=== PATIENT | female | born 1950 | race Caucasian/White ===

== ENCOUNTER → 2016-10-31 | Outpatient (CLI) | payer OTHER, MEDICAID | LOC: YCFC.O 08:10 | PROVIDERS: ATTEND Anesthesiology Pain Medicine | DX: Z79.891 Long term (current) use of opiate analgesic (principal) ==

== ENCOUNTER → 2017-03-07 | Outpatient (CLI) | payer OTHER, MEDICAID | END | disposition home or self-care (01) | LOC: YCFC.O 15:13 | PROVIDERS: ATTEND Anesthesiology Pain Medicine | DX: Z79.891 Long term (current) use of opiate analgesic (principal) ==

== ENCOUNTER → 2017-05-23 | Outpatient (CLI) | payer OTHER, MEDICAID | LOC: YCFC.O 15:47 | PROVIDERS: ATTEND Anesthesiology Pain Medicine | DX: Z79.891 Long term (current) use of opiate analgesic (principal) ==

== ENCOUNTER → 2017-09-12 | Outpatient (CLI) | payer OTHER, MEDICAID | END | disposition home or self-care (01) | LOC: YCFC.O 14:55 | PROVIDERS: ATTEND Anesthesiology Pain Medicine | DX: Z79.891 Long term (current) use of opiate analgesic (principal) ==

== ENCOUNTER → 2017-10-02 | Outpatient (CLI) | payer OTHER, MEDICAID | END | disposition home or self-care (01) | LOC: YCHH 10:27 | PROVIDERS: ATTEND Family Medicine | DX: E78.2 Mixed hyperlipidemia (principal); E11.9 Type 2 diabetes mellitus without complications; N18.9 Chronic kidney disease, unspecified; I25.10 Atherosclerotic heart disease of native coronary artery without angina pectoris; D63.1 Anemia in chronic kidney disease ==

== ENCOUNTER → 2017-11-23 | Outpatient (CLI) | payer MEDICAID, OTHER ==
--- NOTE | 2017-11-24 10:10 | NM ---
EXAM DESCRIPTION: Bone Scan, 3Phase CLINICAL HISTORY: M86.07. Right great toe amputated July 2017. Nonhealing. No redness or swelling. Insulin-dependent diabetes mellitus. Multiple other toe amputations. COMPARISON: No recent plain films available. TECHNIQUE: Patient injected with 26 mCi of technetium 99M MDP IV. Immediate flow gamma camera images were obtained of the bilateral feet from various planes. "Blood pool" images were then obtained of the bilateral feet from various planes. Delayed gamma camera images bilateral forefeet, from various planes were obtained 3.5 hours after injection. FINDINGS: Blood flow dynamic images in the first phase show increased activity in the right great toe. Technically difficult images to visualize. On the "blood pool" second phase, increased activity in the right great toe relative to the surrounding soft tissues. Minimal activity in the left ankle. On the 3.5 hour static final phase images, increased activity in the right great toe metatarsal phalangeal joint and possibly proximal phalanx. No recent plain films available for comparison. Also increased activity in the left ankle and mid tarsal bones. IMPRESSION: 1. Abnormal activity in the region of the right great toe on all 3 phases of dynamic radionuclide bone scan consistent with osteomyelitis. 2. Activity in the left ankle on mid phase and final phase could be indicative of osteoarthritis or trauma. Electronically signed by: Rainer Dodd MD 11/24/2017 10:09 AM [facility]
== END ==
LOC: NM 09:03
DX: M86.071 Acute hematogenous osteomyelitis, right ankle and foot (principal)
CPT/HCPCS: 78315; A9503

== ENCOUNTER → 2018-01-27 | Outpatient (CLI) | payer OTHER | END | disposition home or self-care (01) | LOC: GOCC 18:09 | PROVIDERS: ATTEND Internal Medicine Infectious Disease | DX: Z48.89 Encounter for other specified surgical aftercare (principal); A49.02 Methicillin resistant Staphylococcus aureus infection, unspecified site ==

== ENCOUNTER → 2018-01-30 | Outpatient (CLI) | payer OTHER | END | disposition home or self-care (01) | LOC: GOCC 18:09 | PROVIDERS: ATTEND Internal Medicine Infectious Disease | DX: Z51.81 Encounter for therapeutic drug level monitoring (principal) ==

== ENCOUNTER → 2018-02-02 | Outpatient (CLI) | payer OTHER | LOC: GOCC 18:12 | PROVIDERS: ATTEND Internal Medicine Infectious Disease | DX: A49.02 Methicillin resistant Staphylococcus aureus infection, unspecified site (principal); M20.60 Acquired deformities of toe(s), unspecified, unspecified foot ==

== ENCOUNTER → 2018-02-04 | Outpatient (CLI) | payer OTHER | LOC: GOCC 18:32 | PROVIDERS: ATTEND Internal Medicine Infectious Disease | DX: A49.02 Methicillin resistant Staphylococcus aureus infection, unspecified site (principal); M20.60 Acquired deformities of toe(s), unspecified, unspecified foot ==

== ENCOUNTER → 2018-02-12 | Outpatient (CLI) | payer OTHER | LOC: YCHH 14:41 | PROVIDERS: ATTEND Family Medicine | DX: B95.62 Methicillin resistant Staphylococcus aureus infection as the cause of diseases classified elsewhere (principal); E11.9 Type 2 diabetes mellitus without complications; L03.116 Cellulitis of left lower limb; N18.9 Chronic kidney disease, unspecified; D64.9 Anemia, unspecified ==

== ENCOUNTER → 2018-02-19 | Outpatient (CLI) | payer OTHER | LOC: YCHH 11:15 | PROVIDERS: ATTEND Family Medicine | DX: E11.9 Type 2 diabetes mellitus without complications (principal); D64.9 Anemia, unspecified; L03.116 Cellulitis of left lower limb; B95.62 Methicillin resistant Staphylococcus aureus infection as the cause of diseases classified elsewhere; E03.9 Hypothyroidism, unspecified; E78.5 Hyperlipidemia, unspecified; N18.9 Chronic kidney disease, unspecified ==

== ENCOUNTER → 2018-02-26 | Outpatient (CLI) | payer OTHER | LOC: YCHH 09:50 | PROVIDERS: ATTEND Family Medicine | DX: B95.62 Methicillin resistant Staphylococcus aureus infection as the cause of diseases classified elsewhere (principal); E11.9 Type 2 diabetes mellitus without complications; L03.116 Cellulitis of left lower limb; N18.9 Chronic kidney disease, unspecified; D64.9 Anemia, unspecified ==

== ENCOUNTER → 2018-03-05 | Outpatient (CLI) | payer OTHER | LOC: YCHH 09:22 | PROVIDERS: ATTEND Family Medicine | DX: E11.9 Type 2 diabetes mellitus without complications (principal); D64.9 Anemia, unspecified; E03.9 Hypothyroidism, unspecified; E78.5 Hyperlipidemia, unspecified; L03.116 Cellulitis of left lower limb; B95.62 Methicillin resistant Staphylococcus aureus infection as the cause of diseases classified elsewhere; N18.9 Chronic kidney disease, unspecified ==

== ENCOUNTER → 2018-10-01 | Outpatient (CLI) | payer OTHER | LOC: YCHH 09:09 | PROVIDERS: ATTEND Family Medicine | DX: D64.9 Anemia, unspecified (principal); E11.9 Type 2 diabetes mellitus without complications; E78.5 Hyperlipidemia, unspecified; E03.9 Hypothyroidism, unspecified; N18.9 Chronic kidney disease, unspecified ==

== ENCOUNTER → 2019-01-21 | Outpatient (CLI) | payer OTHER | LOC: YCHH 09:58 | PROVIDERS: ATTEND Family Medicine | DX: N18.9 Chronic kidney disease, unspecified (principal); E11.9 Type 2 diabetes mellitus without complications; E78.5 Hyperlipidemia, unspecified; E03.9 Hypothyroidism, unspecified; D64.9 Anemia, unspecified; N39.0 Urinary tract infection, site not specified ==

== ENCOUNTER → 2019-01-22 | Outpatient (CLI) | payer OTHER | LOC: YCHH 10:44 | PROVIDERS: ATTEND Family Medicine | DX: E11.9 Type 2 diabetes mellitus without complications (principal) ==

== ENCOUNTER → 2019-05-27 | Outpatient (CLI) | payer OTHER | LOC: YCHH 09:03 | PROVIDERS: ATTEND Family Medicine | DX: D64.9 Anemia, unspecified (principal); E11.9 Type 2 diabetes mellitus without complications; N18.9 Chronic kidney disease, unspecified; E78.5 Hyperlipidemia, unspecified; N39.0 Urinary tract infection, site not specified ==

== ENCOUNTER → 2019-06-12 | Outpatient (CLI) | payer OTHER | LOC: LAB.O 11:04 | PROVIDERS: ATTEND Internal Medicine | DX: E11.8 Type 2 diabetes mellitus with unspecified complications (principal); N49.3 Fournier gangrene; Z79.01 Long term (current) use of anticoagulants; I10 Essential (primary) hypertension ==

== ENCOUNTER → 2019-06-18 | Outpatient (CLI) | payer OTHER | LOC: LAB.O 10:48 | PROVIDERS: ATTEND Internal Medicine | DX: E11.8 Type 2 diabetes mellitus with unspecified complications (principal); I73.9 Peripheral vascular disease, unspecified; I10 Essential (primary) hypertension ==

== ENCOUNTER → 2019-06-23 | Outpatient (CLI) | payer OTHER | LOC: GOCC 08:31 | PROVIDERS: ATTEND Internal Medicine Gastroenterology | DX: A04.72 Enterocolitis due to Clostridium difficile, not specified as recurrent (principal) ==

== ENCOUNTER 2019-08-27 09:51 | Inpatient (IN) | payer MEDICARE, OTHER ==
[2019-08-27] MEDS ORDERED: ONDANSETRON INJ 4 MG/2 ML VIAL ONE (09:56)
[2019-08-27] MEDS ORDERED: SODIUM CHLORIDE 0.9% (FLUSH) 10 ML SYG IV PRN ×2 (10:02→13:39)
--- NOTE | 2019-08-27 10:27 | ED.PDOC ---
History of Present Illness - General Chief Complaint: Respiratory Problem Stated Complaint: shortness of breath Time Seen by Provider: 08/27/19 10:02 Source: patient, RN notes reviewed, Vital Signs reviewed, EMS notes reviewed, family Exam Limitations: no limitations - History of Present Illness Initial Comments: patient is a 69-year-old white female who presents with complaints of shortness of breath and mild confusion. Patient has a history of diabetes mellitus, coronary artery disease and peripheral neuropathy. Patient is status post amputation of the toes her right foot approximately 1 month ago. On arrival here patient's oxygen saturation was 86% on room air. Patient denies any fever. On arrival here she was afebrile but quickly spiked a fever to 101.2. Patient denies any cough. He denies any headache, nausea, vomiting, chest pain, diarrhea nothing seems to make the shortness of breath worse. On 1 L of oxygen via nasal cannula. Timing/Duration: 1 hour Severity: mild Activities at Onset: none Possible Cause: no prior episodes Improving Factors: other - oxygen therapy Worsening Factors: nothing Associated Symptoms: weakness Respiratory Risk Factors: no cause identified Allergies/Adverse Reactions: Allergies CI Pigment Blue 63 [From Cymbalta] Allergy (Mild, Verified 07/31/16 09:17) Rash Ciprofloxacin [From Cipro] Allergy (Mild, Verified 07/31/16 09:17) Rash Duloxetine [From Cymbalta] Allergy (Mild, Verified 07/31/16 09:18) Rash Latex Allergy (Mild, Verified 07/31/16 09:19) Rash states does not know if it is the powder or gloves itself that causes the rash Venlafaxine [From Effexor] Allergy (Mild, Verified 07/31/16 09:20) Rash Home Medications: Ambulatory Orders Bupropion HCl [Wellbutrin Sr] 150 mg PO BID #0 03/29/13 Captopril 12.5 mg PO BID #0 03/29/13 Clonazepam 0.5 mg PO TID #0 03/29/13 Clopidogrel Bisulfate [Plavix] 75 mg PO DAILY #0 03/29/13 Furosemide 40 mg PO DAILY #0 03/29/13 Metformin HCl 1,000 mg PO BID #0 03/29/13 Pramipexole Dihydrochloride [Mirapex] 0.25 mg PO DAILY #0 06/07/13 Simvastatin 80 mg PO DAILY #0 03/29/13 Spironolactone 25 mg PO DAILY #0 03/29/13 Tramadol HCl 50 mg PO TID PRN #0 03/29/13 Carvedilol [Coreg] 12.5 mg PO DAILY 07/28/16 Insulin Glargine [Lantus Solostar] 26 unit SC BEDTIME 07/28/16 Insulin Lispro [Humalog] 0 unit SC .SLIDING SCALE PRN 07/28/16 Meloxicam [Mobic] 7.5 mg PO DAILY #15 tab 07/28/16 Pregabalin [Lyrica] 75 mg PO BEDTIME 07/28/16 Trazodone HCl 50 mg PO BEDTIME 07/28/16 Bifidobacterium Infantis [Align] 4 mg PO BID #30 cap 08/02/16 HYDROcodone 7.5MG/APAP 325MG [[place] 7.5/325] 0.5 - 1 tab PO Q6H PRN #35 tab 08/02/16 Nitrofurantoin Monohydrate Mac [Macrobid] 100 mg PO BID #12 cap 08/02/16 Tizanidine HCl [Zanaflex] 2 mg PO Q8H PRN #30 cap 08/02/16 Review of Systems - Review of Systems Constitutional: States: no symptoms reported, malaise, weakness. Denies: chills EENTM: States: no symptoms reported Respiratory: States: see HPI, short of breath. Denies: cough Cardiology: States: see HPI. Denies: chest pain, palpitations, syncope Gastrointestinal/Abdominal: States: no symptoms reported, see HPI Genitourinary: States: no symptoms reported. Denies: dysuria, frequency Musculoskeletal: States: no symptoms reported. Denies: joint swelling, muscle pain, neck pain Skin: States: no symptoms reported. Denies: change in color, rash Neurological: States: weakness. Denies: headache, seizure Endocrine: States: no symptoms reported Hematologic/Lymphatic: States: no symptoms reported All other Systems: Reviewed and Negative Past Medical History (General) - Patient Medical History Hx Seizures: No Hx Stroke: No Hx Asthma: No Hx of COPD: No Hx Cardiac Disorders: Yes Hx Congestive Heart Failure: Yes Hx Pacemaker: No Hx Hypertension: Yes Hx Diabetes: Yes Hx MRSA: No - Vaccination History Hx Influenza Vaccination: Yes Hx Pneumococcal Vaccination: Yes - Social History Hx Tobacco Use: No Hx Chewing Tobacco Use: No Hx Alcohol Use: No Hx Substance Use: No Hx Substance Use Treatment: No Hx Depression: Yes Hx Physical Abuse: No Hx Emotional Abuse: No Hx Suspected Abuse: No Family Medical History - Family History Father Living Status: Hx Family Congestive Heart Failure: Yes - from heart problems Mother Family History: No Known Living Status: Hx Family;Other: cerosis of liver Physical Exam - Physical Exam General Appearance: Alert, Anxious, Obese, Well Developed, Well Groomed, Well Hydrated, Well Nourished Eyes, Ears, Nose, Throat Exam: PERRL/EOMI, normal ENT inspection, pharynx normal Neck: non-tender, full range of motion, supple, normal inspection Respiratory: chest non-tender, lungs clear, normal breath sounds, no respiratory distress, no accessory muscle use Cardiovascular/Chest: normal peripheral pulses, no edema, no gallop, no JVD, no murmur, tachycardia Peripheral Pulses: radial,right: 2+ Gastrointestinal/Abdominal: normal bowel sounds, non tender, soft, no organomegaly, no pulsatile mass Extremity: normal range of motion, non-tender, other - patient is status post bilateral toe amputations. Left leg is cool to touch. This is the likely used for harvesting the vein for her CABG. Her right lower extremity is red with tenderness to palpation and is warm to touch. 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 08/27/19 11:53 Patient presented with complaints of shortness of breath. Initially she did not have a fever but while here spiked a fever to 101.2. That has improved after by mouth Tylenol. Patient's noted to have an elevated white count at over 20,000 with a left shift consistent with infection. Additionally her BNP is elevated consistent with CHF exacerbation. Patient with the hospitalist service, Jones Hodge, and he plans on and agrees with plan for admission. I discussed the plan of care with the patient and her family and they voiced understanding and agreement with the plan of care. - Results/Orders Results/Orders: 08/27/19 10:02 Sodium Chloride 0.9% (Flush) [Saline Flush Syringe] 3 ml IV PRN PRN 08/27/19 10:03 IV Care:Saline Lock per Protoc QSHIFT Telemetry ONCE Oxygen Stat 08/27/19 10:15 EKG STAT 08/27/19 12:00 Vancomycin Per Pharmacy 1 ea INJ ONCE 08/28/19 09:00 Pulse Ox Daily Laboratory Results - last 24 hr 08/27/19 08/27/19 08/27/19 09:45 09:45 09:45 WBC 19.6 H RBC 4.68 Hgb 13.2 Hct 40.2 MCV 85.8 MCH 28.2 MCHC 32.9 L RDW 15.3 H Plt Count 225 MPV 9.4 Absolute Neuts (auto) 17.90 H Absolute Lymphs (auto) 1.00 Absolute Monos (auto) 0.60 Absolute Eos (auto) 0.00 Absolute Basos (auto) 0.10 Neutrophils % 91.2 H Lymphocytes % 5.1 L Monocytes % 3.1 Eosinophils % 0.2 L Basophils % 0.4 PT 9.5 INR 0.95 PTT (SP) 29.6 Sodium 136 Potassium 4.2 Chloride 99 L Carbon Dioxide 21 Anion Gap 20.2 H BUN 17 Creatinine 0.77 BUN/Creatinine Ratio 22.1 H Random Glucose 194 H Serum Osmolality 278.8 Calcium 9.4 Magnesium 1.8 1.8 Total Bilirubin 0.7 Direct Bilirubin 0.2 Indirect Bilirubin 0.5 AST 20 ALT 16 Alkaline Phosphatase 56 Creatine Kinase 52 CK-MB (CK-2) 1.4 CK-MB (CK-2) % Not Reportable Troponin I < 0.02 B-Natriuretic Peptide 467.0 H* Serum Total Protein 7.9 Albumin 4.1 EKG: Performed at 1111 hrs. on 27 August 2019: Sinus tachycardia at 116 bpm with left axis deviation. Inferior infarct age indeterminate, anterior lateral infarct age indeterminate, abnormal EKG. No EKG for comparison. Chest,1 View: CR/DR/XR. CLINICAL HISTORY: 69 years Female DYSPNEA COMPARISON: Chest CT scan 12 November 2014. TECHNIQUE: ONE VIEW PORTABLE. AP 1024 hours, upright position. FINDINGS: Mild cardiomegaly. Pulmonary vascularity increased. Prominent interstitial markings and thickening of the fissures bilaterally. Perihilar peribronchial wall cuffing. Bilateral lung volumes are decreased. Question of a small effusion on the left. None pneumothorax. Chronic elevation of the left hemidiaphragm. IMPRESSION: Findings consistent with CHF and pulmonary edema. Some pulmonary findings are chronic and stable since 2014. Possible small left pleural effusion. Recommend follow-up 2 view chest x-ray. Electronically signed by: Rainer Dodd MD 08/27/2019 10:49 AM Departure - Departure Clinical Impression: Cellulitis of leg without foot, right Congestive heart failure Qualifiers: Heart failure type: unspecified Heart failure chronicity: acute on chronic Qualified Code(s): I50.9 - Heart failure, unspecified Leukocytosis Qualifiers: Leukocytosis type: unspecified Qualified Code(s): D72.829 - Elevated white bl ood cell count, unspecified Fever Qualifiers: Fever type: due to other condition Qualified Code(s): R50.81 - Fever presenting with conditions classified elsewhere Time of Disposition: 12:00 - except in for admission by Jones Hodge Disposition: Admit Patient Condition: Fair Departure Forms: ED Discharge - Pt. Copy, Patient Portal Self Enrollment Referrals: Solitario Carrizales MD [Primary Care Provider] - 1-2 Weeks Home Medications: Ambulatory Orders Bupropion HCl [Wellbutrin Sr] 150 mg PO BID #0 03/29/13 Captopril 12.5 mg PO BID #0 03/29/13 Clonazepam 0.5 mg PO TID #0 03/29/13 Clopidogrel Bisulfate [Plavix] 75 mg PO DAILY #0 03/29/13 Furosemide 40 mg PO DAILY #0 03/29/13 Metformin HCl 1,000 mg PO BID #0 03/29/13 Pramipexole Dihydrochloride [Mirapex] 0.25 mg PO DAILY #0 03/29/13 Simvastatin 80 mg PO DAILY #0 03/29/13 Spironolactone 25 mg PO DAILY #0 03/29/13 Tramadol HCl 50 mg PO TID PRN #0 03/29/13 Carvedilol [Coreg] 12.5 mg PO DAILY 07/28/16 Insulin Glargine [Lantus Solostar] 26 unit SC BEDTIME 07/28/16 Insulin Lispro [Humalog] 0 unit SC .SLIDING SCALE PRN 07/28/16 Meloxicam [Mobic] 7.5 mg PO DAILY #15 tab 07/28/16 Pregabalin [Lyrica] 75 mg PO BEDTIME 07/28/16 Trazodone HCl 50 mg PO BEDTIME 07/28/16 Bifidobacterium Infantis [Align] 4 mg PO BID #30 cap 08/02/16 HYDROcodone 7.5MG/APAP 325MG [[place] 7.5/325] 0.5 - 1 tab PO Q6H PRN #35 tab 08/02/16 Nitrofurantoin Monohydrate Mac [Macrobid] 100 mg PO BID #12 cap 08/02/16 Tizanidine HCl [Zanaflex] 2 mg PO Q8H PRN #30 cap 08/02/16 Decision To Admit - Decistion To Admit Decision to Admit Date: 08/27/19 Decision to Admit Time: 11:38
[2019-08-27] MEDS ORDERED: ONDANSETRON INJ 4 MG/2 ML VIAL IV ONE (10:29)
[2019-08-27] MEDS ORDERED: ACETAMINOPHEN 500 MG TAB PO ONE (10:42)
--- NOTE | 2019-08-27 10:53 | RAD ---
EXAM DESCRIPTION: Chest,1 View: CR/DR/XR. CLINICAL HISTORY: 69 years Female DYSPNEA COMPARISON: Chest CT scan 12 November 2014. TECHNIQUE: ONE VIEW PORTABLE. AP 1024 hours, upright position. FINDINGS: Mild cardiomegaly. Pulmonary vascularity increased. Prominent interstitial markings and thickening of the fissures bilaterally. Perihilar peribronchial wall cuffing. Bilateral lung volumes are decreased. Question of a small effusion on the left. None pneumothorax. Chronic elevation of the left hemidiaphragm. IMPRESSION: Findings consistent with CHF and pulmonary edema. Some pulmonary findings are chronic and stable since 2015. Possible small left pleural effusion. Recommend follow-up 2 view chest x-ray. Electronically signed by: Rainer Dodd MD 08/27/2019 10:49 AM [facility]
[2019-08-27] MEDS ORDERED: VANCOMYCIN PER PHARMACY INJ SCH (12:00)
--- NOTE | 2019-08-27 12:54 | HP ---
SUPERVISING PHYSICIAN: Solitario Carrizales MD CHIEF COMPLAINT: Shortness of breath. HISTORY OF PRESENT ILLNESS: Ms. Murrieta is a 69-year-old female patient who presented to the Emergency Room today complaining of shortness of breath with mild confusion according to her family. She does have a significant medical history of diabetes mellitus, coronary artery disease and severe peripheral neuropathy. She is status post amputation of her toes on her right foot approximately a month ago due to gangrene and diabetic ulcer complication. Initially on admission to the Emergency Room, she was satting 86% on room air, but denied any fever. However, after admission, it was noted she did spike a fever up to 101.2. She denied any cough or headache. She noted she had a mildly sore throat and notes she does have shortness of breath although she feels like it is more when she holds her breath, it takes her a while to catch up. She had been recently on antibiotics with doxycycline and been under treatment by Dr. Proctor and Dr. Guzmán for wound management of the right foot and is under the care of home health. Her labs today showed she had a significant leukocytosis of 19,600 with a left shift. Her chemistries were fairly unremarkable, but she did have anion gap that was slightly elevated at 20. Blood sugar 194. Liver functions were within normal limits. BNP was elevated at 467. She does not have a listed medical history of congestive heart failure. Review of her records showed her last echocardiogram was in 2013. I do not have those results. Given her fever and white count, chest x-ray was completed and per radiologic interpretation of single view chest, findings were consistent with congestive heart failure and pulmonary edema with some pulmonary findings chronic, but stable since 2014. There was note of a small left pleural effusion. Given her symptomatology, fever and white count, there was concern that possibly the foot which is a little red was possibly showing early signs of cellulitis. We cannot completely rule out early community acquired pneumonia with some underlying congestive heart failure exacerbation. The patient is going to be admitted for further evaluation and treatment. She was admitted in stable condition. PAST MEDICAL HISTORY: 1. Diabetes mellitus on insulin therapy. 2. Chronic obstructive pulmonary disease. 3. Hypertension. 4. Peripheral vascular disease. 5. Recent treatment of gangrene osteomyelitis of the right foot due to diabetic ulcer, requiring amputation of the toes having recently been treated with antibiotic with vancomycin for 6 weeks. PAST SURGICAL HISTORY: 1. Coronary artery bypass graft times 4 in 2007. 2. section times 2. 3. Resection of left upper lobe due to necrotizing pneumonia. 4. Left carotid endarterectomy in 2015. 5. Complete amputation of all toes on the right foot due to diabetic complications. CURRENT MEDICATIONS: Awaiting updated verified list of home medications. Please see that list once updated. ALLERGIES: CI PIGMENT BLUE 63, CIPROFLOXACIN, DULOXETINE, LATEX, VENLAFAXINE. FAMILY HISTORY: Noncontributory. SOCIAL HISTORY: The patient is and lives in [place]. She has one son. She has never smoked and has never drank alcohol. REVIEW OF SYSTEMS: CONSTITUTIONAL: Positive for fevers and chills with a fever in the Emergency Room and some mild confusion. HEENT: Negative for earaches, headaches, vision changes. She does note she has a sore throat. RESPIRATORY: Negative for any significant coughing, but does have some shortness of breath. CARDIOVASCULAR: Negative for chest pain, palpitations or syncopal episodes. GASTROINTESTINAL: Negative for nausea, vomiting, diarrhea, constipation. GENITOURINARY: Negative for dysuria, hematuria, polyuria. MUSCULOSKELETAL: As noted in history of present illness. Recent amputation of all toes on the right foot, currently followed by wound management and Dr. Guzmán. NEUROLOGIC: Negative for headaches, numbness, paresthesias. PHYSICAL EXAMINATION: VITAL SIGNS: Temperature in the Emergency Room was 101.7 with pulse 74, blood pressure 138/75, respirations 20, saturation 90% on room air and 93% on nasal cannula at 1 liter. GENERAL: The patient appears to be in no acute distress. She is alert. She does not appear to be confused. HEENT: Tympanic membranes clear bilaterally. Oropharynx is pink. Posterior pharynx mildly erythematous. Tonsils without any notable swelling or exudate. NECK: Supple, nontender with full range of motion. No jugular venous distention noted. RESPIRATORY: Lung sounds diminished towards the bases, but no obvious rhonchi, wheezes or rales. CARDIOVASCULAR: Regular rate and rhythm without any appreciable murmurs, gallops, or rubs. ABDOMEN: Soft, nontender. Positive bowel sounds. EXTREMITIES: Status post bilateral toe amputations. Right lower extremity with some redness and tenderness to palpation over the distal aspect of the foot with an area of healing with eschar on the distal lateral aspect, but no drainage, no obvious consolidations. NEUROLOGIC: The patient is alert and oriented times three. Cranial nerves II- XII are grossly intact. Facial features are symmetrical. Extraocular movements are within normal limits. There is no nystagmus noted. SKIN: Warm, pink and dry. LABORATORY: CBC showed leukocytosis of 19,600 with a left shift. Coagulation studies within normal limits. Chemistries showed normal electrolytes, but she did have an anion gap elevated at 20. BUN 17, creatinine 0.7. Liver functions all within normal limits. Troponin less than 0.02. BNP was elevated at 467. Urinalysis pending. Group A Strep screen positive. Influenza by PCR was negative. RADIOLOGY: Chest x-ray in the Emergency Room per radiologic interpretation of single view chest showed findings consistent with congestive heart failure and pulmonary edema, some pulmonary findings are chronic and stable since 2015. This was followed up with a two view chest and per radiologic interpretation again showed cardiomegaly with prominent pulmonary vasculature with small left pleural effusion, might represent pulmonary edema secondary to underlying heart failure with linear areas of airspace opacification in the right middle lobe, likely representing chronic atelectasis or scarring. X-ray of the right foot showed postsurgical changes consistent with amputation of the entire forefoot up to the metatarsophalangeal joint with some moderate soft tissue swelling of the stump with questionable subcutaneous air concerning for cellulitis, however, underlying osteotome was not completely excluded. No gross cortical irregularity or bony erosions were noted. Echocardiogram was also completed on admission and was read by Dr. Marion, but was technically limited secondary to poor acoustic windows, but it was noted that probable ejection fraction was 30%. ASSESSMENT: 1. Leukocytosis with probable developing right sided community acquired pneumonia with acute exacerbation of chronic obstructive pulmonary disease. 2. Acute pharyngitis secondary to Group A Strep, possibly complicating #1. 3. Chronic wound of the right lower extremity with recent amputation within the last 30 days having been on long-term antibiotic therapy with vancomycin with concerns for developing cellulitis versus complications to include osteomyelitis. 4. Acute on chronic congestive heart failure exacerbation with a reduced ejection fraction per recent echocardiogram showing ejection fraction of 30%. 5. Diabetes mellitus, type 2, on oral and insulin therapy. 6. Severe peripheral vascular disease. 7. Chronic obstructive pulmonary disease with exacerbation as noted in #1. 8. Hypertension. PLAN: Ms. Murrieta is going to be admitted for initiation of antibiotic therapy for treatment of both questionable underlying cellulitis of the right lower extremity again with concerns for osteomyelitis from chronic wound. She is also going to be started on cefepime and azithromycin for treatment of underlying developing pneumonia with exacerbation of her chronic obstructive pulmonary disease. I am not too convinced that she is having a severe exacerbation of her congestive heart failure, but she did have elevated BNP on admission, but we will continue with her normal Lasix at this point and reassess in the morning. She did have a positive strep screen which could be complicating her picture with the fever and concern for developing pneumonia that will be covered with azithromycin and cefepime. The reason I am utilizing cefepime is the fact that she has been in a long-term care facility within the last several months and has been on long-term antibiotic therapy to cover for possible Pseudomonas and she is allergic to fluoroquinolones. I believe she is being followed by Dr. Guzmán or Dr. Livingston, but I am not sure if Dr. [place]. We will need to see if we can talk to Dr. Guzmán and discuss the findings on the foot. She may need MRI of the foot to further rule out osteomyelitis, but the foot honestly does not look that bad at this point, but I have not followed it. Dr. Carrizales is going to see the patient in the morning and review plan of care and we will repeat labs in the morning as well. Her echocardiogram was done, but according to Dr. Marion was very difficult to read, but review of old records looks like she did have an ejection fraction at some point of 40%. We will put her on DVT prophylaxis per protocol. She is not having any significant amount of shortness of breath or wheezing. Therefore, we will hold off on any steroids. At this point, given the significant amount of breathing treatments, we will go ahead and continue with aggressive bronchial hygiene. Again, it is a little difficult on the x-rays to fully rule out underlying pneumonia versus possible pulmonary edema, but again clinically she is not presenting as fluid overload and it may just be that the acute pharyngitis is resulting in her elevated white count and fever. Given her underlying comorbidities, we will cover accordingly with antibiotics. Again, we will continue with medications for her congestive heart failure including her Lasix and Spironolactone and reassess in the morning. She is also already on a beta sharon. Until the patient can transition to outpatient management, we will continue to monitor and treat as needed. #[id number] [facility]
[2019-08-27] MEDS ORDERED: VANCOMYCIN HCL INJ 1,000 MG VIAL IVPB ONE (13:18)
[2019-08-27] MEDS ORDERED: VANCOMYCIN HCL INJ 500 MG VIAL ONE (13:18)
[2019-08-27] MEDS ORDERED: SODIUM CHLORIDE 0.9% 250ML 250 ML ONE ×2 (13:18→15:10)
[2019-08-27] MEDS: VANCOMYCIN HCL INJ 1,000 MG, VANCOMYCIN HCL INJ 500 MG in SODIUM CHLORIDE 0.9% 250ML 25... IVPB SCH (13:24)
[2019-08-27] MEDS ORDERED: DEXTROSE 50% 25 GM/50 ML SYG IV PRN (13:39)
[2019-08-27] MEDS ORDERED: NITROGLYCERIN 0.4 MG 25 EA TAB SL PRN (13:39)
[2019-08-27] MEDS ORDERED: ONDANSETRON INJ 4 MG/2 ML VIAL IV PRN (13:39)
[2019-08-27] MEDS ORDERED: GLUCAGON INJ 1 MG VIAL SUBCU PRN (13:39)
[2019-08-27] MEDS ORDERED: ACETAMINOPHEN 325 MG TAB PO PRN (13:39)
[2019-08-27] MEDS ORDERED: IV SET AND CAP CHANGE INJ INJ SCH (14:00)
[2019-08-27] MEDS ORDERED: ACETAMINOPHEN W/ COD #4 TAB 1EA TAB PO PRN ×2 (14:11→20:46)
[2019-08-27] MEDS ORDERED: CYANOCOBALAMIN INJ 1,000 MCG/ML INJ IM SCH (14:30)
[2019-08-27] MEDS ORDERED: CEFEPIME 2 GM in SODIUM CHL 0.9% 50ML MIN-BAG+ 50 ML IVPB SCH (15:00)
[2019-08-27] MEDS ORDERED: SODIUM CHL 0.9% 50ML MIN-BAG+ 50 ML IVPB ONE (15:10)
--- NOTE | 2019-08-27 15:10 | RAD ---
EXAM DESCRIPTION: Foot,Left 2 Views CLINICAL HISTORY: possible cellulitis COMPARISON: None Available. TECHNIQUE: AP and lateral radiograph of the right foot. FINDINGS: Diffuse osteopenia of the visualized bones noted. Post surgical changes consistent with amputation of the entire forefoot up to the metatarsophalangeal joint noted. No acute fracture. Mild soft tissue swelling of the stump with questionable subcutaneous air is concerning for cellulitis. No definite cortical irregularity or bony erosion of the metatarsal heads noted, however acute osteomyelitis cannot be completely excluded. A large calcaneal spur is noted at the insertion of plantaris IMPRESSION: 1. Postsurgical changes consistent with amputation of entire forefoot up to the metatarsophalangeal joint. 2. Mild soft tissue swelling of the stump with questionable subcutaneous air is concerning for cellulitis, however underlying acute osteomyelitis cannot be completely excluded. No gross cortical irregularity or bony erosions identified. Electronically signed by: Wilber Leung MD 08/27/2019 3:08 PM [facility]
[2019-08-27] MEDS ORDERED: CEFEPIME 2 GM VIAL ONE (15:11)
[2019-08-27] MEDS ORDERED: AZITHROMYCIN IV 500 MG VIAL IVPB ONE (15:12)
--- NOTE | 2019-08-27 15:14 | RAD ---
EXAM DESCRIPTION: Chest,2 Views CLINICAL HISTORY: 69 years Female, CHF vs PNA COMPARISON: CT chest dated July 29, 2016. TECHNIQUE: PA and lateral radiographs of the chest were obtained. FINDINGS: The trachea is slightly deviated to the right. The cardiomediastinal silhouette is enlarged. Prominence of the pulmonary vasculature with cephalization likely represent underlying pulmonary edema. Again noted are linear areas of airspace opacification in the right middle lobe likely represents chronic atelectasis/scarring. The pulmonary arteries appears mildly prominent likely represents sequela of pulmonary hypertension. No acute consolidation. Small left pleural effusion. IMPRESSION: 1. Cardiomegaly with prominent pulmonary vasculature and small left pleural effusion likely represents pulmonary edema secondary to underlying heart failure. 2. Linear areas of airspace opacification in the right middle lobe likely represents chronic atelectasis/scarring. Electronically signed by: Wilber Leung MD 08/27/2019 3:12 PM [employer] OF WORKS
[2019-08-27] MEDS ORDERED: AZITHROMYCIN IV 500 MG in SODIUM CHLORIDE 0.9% 250ML 250 ML IVPB SCH (16:00)
[2019-08-27] MEDS ORDERED: metFORMIN HCL 500 MG TAB PO SCH (17:00)
[2019-08-27] MEDS: INSULIN LISPRO 100 UNITS/ML PEN SUBCU SCH ×2 (17:06→20:53)
[2019-08-27] MEDS ORDERED: DOCUSATE SODIUM 100 MG CAP PO PRN (20:46)
[2019-08-27] MEDS: CARVEDILOL 12.5 MG TAB PO SCH ×2 (20:55→21:06)
[2019-08-27] MEDS ORDERED: [UNRECOGNIZED DRUG - OTHER] PO SCH (21:00)
[2019-08-27] MEDS ORDERED: traZODone HCL 50 MG TAB PO SCH (21:00)
[2019-08-27] MEDS ORDERED: INSULIN DETEMIR 100 UNITS/ML PEN SUBCU SCH (21:00)
[2019-08-27] MEDS ORDERED: CAPTOPRIL 12.5 MG PO SCH (21:00)
[2019-08-27] MEDS ORDERED: PRAMIPEXOLE 0.25 MG TAB PO SCH (21:00)
[2019-08-27] MEDS ORDERED: SIMVASTATIN 20 MG TAB PO SCH (21:00)
[2019-08-27] MEDS ORDERED: BIFIDOBACTERIUM INFANTIS 4 MG CAP PO SCH (21:00)
[2019-08-27] MEDS ORDERED: SOD PO SCH (21:00)
[2019-08-27] MEDS ORDERED: DOCUSATE SODIUM 100 MG CAP PO SCH (21:00)
[2019-08-28] MEDS ORDERED: VANCOMYCIN HCL INJ 500 MG VIAL ONE (06:20)
[2019-08-28] MEDS ORDERED: VANCOMYCIN HCL INJ 1,000 MG VIAL IVPB ONE (06:20)
[2019-08-28] MEDS ORDERED: SODIUM CHLORIDE 0.9% 250ML 250 ML ONE ×2 (06:20→07:27)
[2019-08-28] MEDS: VANCOMYCIN HCL INJ 1,000 MG, VANCOMYCIN HCL INJ 500 MG in SODIUM CHLORIDE 0.9% 250ML 25... IVPB SCH (06:43)
[2019-08-28 06:56] VITALS: BP 116/66; TEMP 97.1
[2019-08-28] MEDS ORDERED: SODIUM CHL 0.9% 50ML MIN-BAG+ 50 ML IVPB ONE (07:27)
[2019-08-28] MEDS ORDERED: CEFEPIME 2 GM VIAL ONE (07:28)
[2019-08-28] MEDS ORDERED: AZITHROMYCIN IV 500 MG VIAL IVPB ONE (07:30)
[2019-08-28] MEDS ORDERED: ENOXAPARIN SODIUM 40 MG/0.4 ML SYG SUBCU SCH (09:00)
[2019-08-28] MEDS ORDERED: PRAMIPEXOLE 0.25 MG TAB PO SCH (09:00)
[2019-08-28] MEDS ORDERED: SPIRONOLACTONE 25 MG TAB PO SCH (09:00)
[2019-08-28] MEDS ORDERED: FUROSEMIDE 40 MG TAB PO SCH (09:00)
[2019-08-28] MEDS ORDERED: PREGABALIN 75 MG CAP PO SCH (09:00)
[2019-08-28] MEDS ORDERED: ESCITALOPRAM 10 MG TAB PO SCH (09:00)
[2019-08-28] MEDS ORDERED: CLOPIDOGREL 75 MG TAB PO SCH (09:00)
[2019-08-28] MEDS ORDERED: ASPIRIN (CHEWABLE) 81 MG TAB PO SCH (09:00)
[2019-08-28 15:20] VITALS: O2SAT 94
--- NOTE | 2019-08-28 17:25 | DS ---
SUPERVISING PHYSICIAN: Solitario Carrizales M.D. ADMISSION DIAGNOSIS: 1. Leukocytosis with possible right sided community acquired pneumonia. 2. Acute exacerbation of chronic obstructive pulmonary disease. 3. Group A Strep pharyngitis. 4. Chronic wound in the right lower extremity with recent amputation in the last 30 days on chronic vancomycin therapy with concern for cellulitis versus complications to include osteomyelitis. 5. Acute on chronic congestive heart failure with an ejection fraction of 30%. 6. Diabetes mellitus type 2. 7. Peripheral vascular disease. 8. Chronic obstructive pulmonary disease. 9. Hypertension. DISCHARGE DIAGNOSIS: 1. Leukocytosis with possible right sided community acquired pneumonia. 2. Acute exacerbation of chronic obstructive pulmonary disease. 3. Group A Strep pharyngitis. 4. Chronic wound in the right lower extremity with recent amputation in the last 30 days on chronic vancomycin therapy with concern for cellulitis versus complications to include osteomyelitis. 5. Acute on chronic congestive heart failure with an ejection fraction of 30%. 6. Diabetes mellitus type 2. 7. Peripheral vascular disease. 8. Chronic obstructive pulmonary disease. 9. Hypertension. HOSPITAL COURSE: This is a 69 year-old female who went to the Emergency Room with shortness of breath and mild confusion. She has a history of pretty significant peripheral vascular disease and recently had amputation of some toes on her right foot about a month ago due to gangrene and diabetic foot ulcers. In the Emergency Room, she was noted to have O2 saturations of 86% but denied fever, however was noted to have a fever in the Emergency Room of 101.2. She also had complaints of sore throat and therefore a swab was done which showed Strep pharyngitis. She has been on outpatient antibiotics with Doxycycline under the treatment of Dr. Joel and Dr. Guzmán. Chest x-rays were done which showed some pulmonary vascular congestion. Due to her leukocytosis and multiple potential infection sources, she was admitted to the hospital. She was placed on Cefepime and azithromycin. A foot x-ray was done as well due to concerns for osteomyelitis and it did show some mild soft tissue swelling but could not completely rule out osteomyelitis. However, she did not have a significant cellulitis. Throughout her time on the unit her vital signs were acceptable. Her temperature went down. This morning she feels really good and actually wants to go home. She was evaluated by Dr. Carrizales and he agrees that she can probably go home with outpatient antibiotics for her Strep pharyngitis as well as any upper respiratory issues/bronchitis. I do not hear any wheezing or adventitious lung sounds at this time. She is not short of breath either. So will discharge her home in stable condition with Omnicef to be given twice a day for 7 days. She will followup on September [address] Carrizales at 2:45 in the afternoon. All other home medications have been resumed. #[id number] [facility]
[2019-09-02] MEDS ORDERED: NON-FORMULARY MEDICATION 1 EA MIS (Semaglutide [Ozempic] 2 MG) SC SCH (14:11)
== END 2019-08-28 10:50 | disposition home or self-care (01) | DRG 190 ==
LOC: ER 09:51 → OBSVTOIN 12:53 → MS 12:53
PROVIDERS: ADMIT Nurse Practitioner Family; ATTEND Nurse Practitioner
DX: J44.1 Chronic obstructive pulmonary disease with (acute) exacerbation (principal); I50.43 Acute on chronic combined systolic (congestive) and diastolic (congestive) heart failure; L03.115 Cellulitis of right lower limb; I11.0 Hypertensive heart disease with heart failure; J02.0 Streptococcal pharyngitis; D72.829 Elevated white blood cell count, unspecified; E11.51 Type 2 diabetes mellitus with diabetic peripheral angiopathy without gangrene; R50.81 Fever presenting with conditions classified elsewhere; I25.10 Atherosclerotic heart disease of native coronary artery without angina pectoris; E11.42 Type 2 diabetes mellitus with diabetic polyneuropathy; M77.31 Calcaneal spur, right foot; M85.871 Other specified disorders of bone density and structure, right ankle and foot; Z79.4 Long term (current) use of insulin; Z79.02 Long term (current) use of antithrombotics/antiplatelets; Z79.1 Long term (current) use of non-steroidal anti-inflammatories (NSAID); Z79.899 Other long term (current) drug therapy; Z89.411 Acquired absence of right great toe; Z89.421 Acquired absence of other right toe(s); Z98.890 Other specified postprocedural states; Z95.1 Presence of aortocoronary bypass graft; Z91.040 Latex allergy status; Z88.1 Allergy status to other antibiotic agents; Z88.8 Allergy status to other drugs, medicaments and biological substances

== ENCOUNTER → 2019-09-04 | Outpatient (CLI) | payer MEDICARE | LOC: YCHH 09:59 | PROVIDERS: ATTEND Family Medicine | DX: N39.0 Urinary tract infection, site not specified (principal) ==

== ENCOUNTER → 2019-10-07 | Outpatient (CLI) | payer MEDICARE | LOC: YCHH 09:52 | PROVIDERS: ATTEND Family Medicine | DX: E11.42 Type 2 diabetes mellitus with diabetic polyneuropathy (principal); T87.43 Infection of amputation stump, right lower extremity; N18.9 Chronic kidney disease, unspecified; D64.9 Anemia, unspecified; E03.9 Hypothyroidism, unspecified; M86.9 Osteomyelitis, unspecified ==

== ENCOUNTER → 2019-11-15 | Outpatient (CLI) | payer MEDICARE | LOC: YCHH 10:45 | PROVIDERS: ATTEND Family Medicine | DX: E03.9 Hypothyroidism, unspecified (principal) ==

== ENCOUNTER → 2020-01-15 | Outpatient (CLI) | payer MEDICARE | LOC: YCHH 10:42 | PROVIDERS: ATTEND Family Medicine | DX: M25.50 Pain in unspecified joint (principal) ==

== ENCOUNTER → 2020-02-14 | Outpatient (CLI) | payer MEDICARE | LOC: YCHH 09:34 | PROVIDERS: ATTEND Family Medicine | DX: E11.9 Type 2 diabetes mellitus without complications (principal); N18.9 Chronic kidney disease, unspecified; D64.9 Anemia, unspecified; E78.5 Hyperlipidemia, unspecified; E03.9 Hypothyroidism, unspecified ==

== ENCOUNTER → 2020-02-19 | Outpatient (CLI) | payer MEDICARE | LOC: YCHH 09:24 | PROVIDERS: ATTEND Family Medicine | DX: E11.9 Type 2 diabetes mellitus without complications (principal) ==

== ENCOUNTER 2020-02-23 00:28 | Emergency (ER) | payer MEDICARE ==
--- NOTE | 2020-02-23 00:44 | ED.PDOC ---
History of Present Illness - General Time Seen by Provider: 02/23/20 00:40 Additional Information: Patient is a 70-year-old female who presents to the ED with chief complaint of shortness of breath. Patient indicates that shortness of breath began earlier today and is progressively gotten worse. Patient had a heart attack with a CABG in 2007 and says that her symptoms are similar to when she had a heart attack. Patient indicates she has a history of CHF and says that she has slightly wo rsened orthopnea. She has an occasional dry cough but denies fever or chest pain. Patient is a diabetic and she is on Plavix. - History of Present Illness Allergies/Adverse Reactions: Allergies CI Pigment Blue 63 [From Cymbalta] Allergy (Mild, Verified 07/31/16 09:17) Rash Ciprofloxacin [From Cipro] Allergy (Mild, Verified 07/31/16 09:17) Rash Duloxetine [From Cymbalta] Allergy (Mild, Verified 07/31/16 09:18) Rash Latex Allergy (Mild, Verified 07/31/16 09:19) Rash states does not know if it is the powder or gloves itself that causes the rash Venlafaxine [From Effexor] Allergy (Mild, Verified 07/31/16 09:20) Rash Home Medications: Ambulatory Orders Captopril 12.5 mg PO BID #0 03/29/13 Clopidogrel Bisulfate [Plavix] 75 mg PO DAILY #0 03/29/13 Furosemide 40 mg PO DAILY #0 03/29/13 Metformin HCl 1,000 mg PO BID #0 03/29/13 Spironolactone 25 mg PO DAILY #0 03/29/13 Carvedilol [Coreg] 12.5 mg PO BID 07/28/16 Insulin Glargine [Lantus Solostar] 26 unit SC BEDTIME 07/28/16 Insulin Lispro [Humalog] 0 unit SC .SLIDING SCALE PRN 07/28/16 Bifidobacterium Infantis [Align] 4 mg PO BID #30 cap 08/02/16 Acetaminophen W/ Codeine [Tylenol/Codeine #4 300-60 mg] 1 ea PO TID PRN 08/27/19 Acetaminophen [Mapap] 500 mg PO TID PRN 08/27/19 Aspirin [Aspirin Childrens] 81 mg PO DAILY 08/27/19 Bupropion HCl [Wellbutrin Sr] 150 mg PO QAM 08/27/19 Cyanocobalamin Inj [Vitamin B-12 Inj] 1,000 mcg IM MONTHLY 08/27/19 Docusate Sodium [Stool Softener] 100 mg PO DAILY PRN 08/27/19 Escitalopram Oxalate [Lexapro] 5 mg PO DAILY 08/27/19 Pramipexole Dihydrochloride [Mirapex] 0.25 mg PO BEDTIME 08/27/19 Pregabalin [Lyrica] 150 mg PO DAILY 08/27/19 Semaglutide [Ozempic] 2 mg SC MO 08/27/19 Simvastatin 40 mg PO DAILY 08/27/19 diphenhydrAMINE HCL [Benadryl] 25 mg PO DAILY PRN 08/27/19 Review of Systems - Review of Systems Constitutional: States: no symptoms reported. Denies: chills, fever Respiratory: States: see HPI, orthopnea, short of breath Cardiology: States: palpitations. Denies: chest pain Gastrointestinal/Abdominal: States: no symptoms reported. Denies: abdominal pain, nausea, vomiting Musculoskeletal: States: no symptoms reported Skin: States: no symptoms reported. Denies: rash Neurological: States: no symptoms reported All other Systems: Reviewed and Negative Past Medical History (General) - Patient Medical History Hx Seizures: No Hx Stroke: No Hx Asthma: No Hx of COPD: No Hx Cardiac Disorders: Yes Hx Congestive Heart Failure: Yes Hx Pacemaker: No Hx Hypertension: Yes Hx Diabetes: Yes Hx MRSA: Yes MRSA Source:: Ostomyleti - Vaccination History Hx Influenza Vaccination: Yes Hx Pneumococcal Vaccination: Yes - Social History Hx Tobacco Use: No Hx Chewing Tobacco Use: No Hx Alcohol Use: No Hx Substance Use: No Hx Substance Use Treatment: No Hx Depression: Yes Hx Physical Abuse: No Hx Emotional Abuse: No Hx Suspected Abuse: No Family Medical History - Family History Father Living Status: Hx Family Congestive Heart Failure: Yes - from heart problems Mother Family History: No Known Living Status: Hx Family;Other: cerosis of liver Physical Exam - Physical Exam General Appearance: Alert, Anxious, Obvious distress, Obese ENT Exam: normal ENT inspection Neck: supple Respiratory: lungs clear, respiratory distress - mild, accessory muscle use, other - Negative wheezes, rales or rhonchi Cardiovascular/Chest: regular rate, rhythm, no edema, no gallop, no JVD, no murmur, tachycardia Gastrointestinal/Abdominal: normal bowel sounds, non tender, soft, no organomegaly, no pulsatile mass Extremity: normal range of motion, non-tender, other - No pedal edema to the bilateral lower legs. Lower legs are wrapped in gauze with an Adi wrap. 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 02/23/20 00:53 Patient's initial EKG is wide-complex tachycardia. There are no old EKGs for comparison. Rate 153, left axis. Will give amiodarone 150 mg IV. 02/23/20 01:31 Patient reassessed and she indicates she is feeling much better at this time. Patient has been given amiodarone and her rate has come down from 153-87. Patient is in a left bundle branch block. 02/23/20 02:5 Patient's WBC is elevated at 13.4 and her lactate is 3.9. Patient's chest x-ray suggests a right upper lobe pneumonia and patient meets sepsis criteria. Patient's troponin is normal but her BNP is slightly elevated at 520 and superimposed CHF cannot be excluded. Patient has been given Lasix 40 mg to address possible CHF. Patient has been covered with Zosyn for the pneumonia. Patient remains on an amiodarone drip. I discussed with Dr. Lam at [facility], accountant machine processing, who will consult. He requested patient be transferred ED to ED for her to be reexamined and COVID tested in the emergency department before being admitted. We are unable to do rapid COVID testing at [facility]. I have spoken with Dr. Mccollum, ED physician who accepts patient in transfer. Patient is stable and medically clear for transfer at this time.8 Departure - Departure Clinical Impression: Wide-complex tachycardia, Severe sepsis without septic shock Pneumonia Qualifiers: Pneumonia type: due to unspecified organism Laterality: right Lung location: upper lobe of lung Qualified Code(s): J18.9 - Pneumonia, unspecified organism Time of Disposition: 02:56 Disposition: Transfer to Hospital Condition: Fair Home Medications: Ambulatory Orders Captopril 12.5 mg PO BID #0 06/07/13 Clopidogrel Bisulfate [Plavix] 75 mg PO DAILY #0 03/29/13 Furosemide 40 mg PO DAILY #0 03/29/13 Metformin HCl 1,000 mg PO BID #0 03/29/13 Spironolactone 25 mg PO DAILY #0 03/29/13 Carvedilol [Coreg] 12.5 mg PO BID 07/28/16 Insulin Glargine [Lantus Solostar] 26 unit SC BEDTIME 07/28/16 Insulin Lispro [Humalog] 0 unit SC .SLIDING SCALE PRN 07/28/16 Bifidobacterium Infantis [Align] 4 mg PO BID #30 cap 08/02/16 Acetaminophen W/ Codeine [Tylenol/Codeine #4 300-60 mg] 1 ea PO TID PRN 08/27/19 Acetaminophen [Mapap] 500 mg PO TID PRN 08/27/19 Aspirin [Aspirin Childrens] 81 mg PO DAILY 08/27/19 Bupropion HCl [Wellbutrin Sr] 150 mg PO QAM 08/27/19 Cyanocobalamin Inj [Vitamin B-12 Inj] 1,000 mcg IM MONTHLY 08/27/19 Docusate Sodium [Stool Softener] 100 mg PO DAILY PRN 08/27/19 Escitalopram Oxalate [Lexapro] 5 mg PO DAILY 08/27/19 Pramipexole Dihydrochloride [Mirapex] 0.25 mg PO BEDTIME 08/27/19 Pregabalin [Lyrica] 150 mg PO DAILY 08/27/19 Semaglutide [Ozempic] 2 mg SC MO 08/27/19 Simvastatin 40 mg PO DAILY 08/27/19 diphenhydrAMINE HCL [Benadryl] 25 mg PO DAILY PRN 08/27/19 Critical Care Note - Critical Care Note Total Time (mins): 30 Transfer to Outside Facility - Transfer Information Decision to Transfer Date: 02/23/20 Decision to Transfer Time: 02:57 Reason for Transfer: required specialist not available Accepting Provider:: Dr. Mccollum Accepting Facility: [facility]
[2020-02-23] MEDS ORDERED: AMIODARONE IV (LOAD) 150 MG in DEXTROSE 5% 100ML 100 ML IVPB ONE (00:49)
[2020-02-23] MEDS ORDERED: AMIODARONE HCL 150 MG/3 ML VIAL IVPB ONE (00:54)
[2020-02-23] MEDS ORDERED: SODIUM CHL 0.9% 50ML MIN-BAG+ 50 ML IVPB ONE (00:57)
--- NOTE | 2020-02-23 01:09 | RAD ---
CLINICAL HISTORY: SOB COMPARISON: 08/27/2019. TECHNIQUE: XR CHEST 1 VIEW 02/23/2020 12:41 AM CDT FINDINGS: The heart is mildly enlarged. Sternotomy was performed. There is a developing right upper lobe consolidation. There is no pleural effusion. There is no pneumothorax. There are no acute osseous findings. IMPRESSION: Possible right upper lobe pneumonia. Electronically signed by: Liborio Valdez MD 02/23/2020 1:07 AM CDT
[2020-02-23] MEDS ORDERED: AMIODARONE IV (MAINT) 900 MG in DEXTROSE 5% (AVIVA) 500ML 500 ML IVPB SCH (01:30)
[2020-02-23] MEDS ORDERED: AMIODARONE HCL 900 MG/18 ML VIAL IVPB ONE (02:13)
[2020-02-23] MEDS ORDERED: DEXTROSE 5% (AVIVA) 500ML 500 ML IVPB ONE (02:14)
[2020-02-23] MEDS ORDERED: PIPERACILLIN/TAZOBACTAM 3.375 GM in SODIUM CHLORIDE 0.9% 100ML 100 ML IVPB ONE (02:24)
[2020-02-23] MEDS: FUROSEMIDE INJ 40 MG/4 ML VIAL IV ONE ×2 (03:01→03:27)
[2020-02-23 03:07] VITALS: TEMP 98.2
[2020-02-23 03:11] VITALS: BP 114/64; O2SAT 100
[2020-02-23] MEDS ORDERED: PIPERACILLIN/TAZOBACTAM 3.375 GM VIAL IVPB ONE (03:29)
[2020-02-23] MEDS ORDERED: SODIUM CHLORIDE 0.9% 100ML 100 ML IVPB ONE (03:29)
== END 2020-02-23 03:45 | disposition short-term general hospital (02) ==
LOC: ER 00:28
DX: J18.9 Pneumonia, unspecified organism (principal); R00.0 Tachycardia, unspecified; A41.9 Sepsis, unspecified organism; E11.9 Type 2 diabetes mellitus without complications; I10 Essential (primary) hypertension; I50.9 Heart failure, unspecified; Z95.1 Presence of aortocoronary bypass graft; Z79.899 Other long term (current) drug therapy; I25.2 Old myocardial infarction
CPT/HCPCS: 36415; 71045; 80053; 83605; 83880; 84484; 85025; 85379; 87040; 93005; J0282; J7050; J7060

== ENCOUNTER → 2020-04-27 | Outpatient (CLI) | payer MEDICARE | LOC: YCHH 10:09 | PROVIDERS: ATTEND Family Medicine | DX: N18.9 Chronic kidney disease, unspecified (principal); D64.9 Anemia, unspecified; E78.5 Hyperlipidemia, unspecified; E11.9 Type 2 diabetes mellitus without complications; E03.9 Hypothyroidism, unspecified; M79.10 Myalgia, unspecified site; M86.179 Other acute osteomyelitis, unspecified ankle and foot ==

== ENCOUNTER 2020-07-08 13:43 | Inpatient (IN) | payer OTHER ==
--- NOTE | 2020-07-08 14:27 | RAD ---
EXAM DESCRIPTION: Chest,1 View CLINICAL HISTORY: ams, sob COMPARISON: 23 Feb 2020 TECHNIQUE: AP portable chest FINDINGS: A poor inspiratory effect is observed. The patient is poststernotomy. The exam reveals evidence of prior left upper chest surgery. Left basilar interstitial alveolar infiltrate is observed. No pleural fluid is seen. The heart is within range of normal. IMPRESSION: Left lung interstitial and alveolar infiltrate is observed. A poor respiratory effect is noted. Electronically signed by: Luis Izaguirre MD 07/08/2020 2:25 PM CDT
[2020-07-08] MEDS ORDERED: CEFEPIME 2 GM in SODIUM CHL 0.9% 100ML MINI-BAG 100 ML IVPB ONE (14:32)
[2020-07-08] MEDS ORDERED: SODIUM CHLORIDE 0.9% 1000ML 500 ML IVS ONE (15:02)
[2020-07-08] MEDS ORDERED: methylPREDNISolone SODIUM SUC 125 MG/2 ML VIAL IV ONE (15:03)
[2020-07-08] MEDS ORDERED: INSULIN LISPRO 100 UNITS/ML PEN SUBCU ONE (15:03)
--- NOTE | 2020-07-08 16:06 | CT ---
EXAM DESCRIPTION: Lower Extremity CLINICAL HISTORY: 70 years Female, possible osteo TECHNIQUE: This exam was performed according to our departmental dose-optimization program, which includes automated exposure control, adjustment of the mA and/or kV according to patient size and/or use of iterative reconstruction technique. COMPARISON: 08/27/2019 FINDINGS: Evaluation degraded by motion. Forefoot amputation. Linear tracking soft tissue defect along the plantar aspect of the right lateral foot. The soft tissue defect tracks towards the residual fifth metatarsal base. There is irregularity and erosion of the residual fifth metatarsal. No drainable fluid collection. Lateral midfoot soft tissue swelling. Evaluation for a fracture in the mid foot is limited given motion. No dislocation is identified. IMPRESSION: Soft tissue defect in the right foot laterally along the plantar aspect adjacent the residual fifth metatarsal base, with findings worrisome for osteomyelitis in the residual fifth metatarsal. Electronically signed by: Merlin Arce MD 07/08/2020 4:04 PM CDT
[2020-07-08] MEDS ORDERED: VANCOMYCIN HCL INJ 1,000 MG, VANCOMYCIN HCL INJ 250 MG in SODIUM CHLORIDE 0.9% 250ML 25... IVPB ONE (16:09)
[2020-07-08] MEDS ORDERED: PROMETHAZINE HCL INJ 12.5 MG in SODIUM CHLORIDE 0.9% 50ML 50 ML IVPB ONE (16:27)
--- NOTE | 2020-07-08 19:13 | CT ---
EXAM DESCRIPTION: Head CLINICAL HISTORY: ams COMPARISON: None Available TECHNIQUE: Contiguous axial CT images of the head were obtained. Coronal and sagittal reconstructions were created from the axial data. This exam was performed according to our departmental dose-optimization program, which includes automated exposure control, adjustment of the mA and/or kV according to patient size and/or use of iterative reconstruction technique. FINDINGS: Motion limits detail. There is evolving encephalomalacia involving the right parietal and occipital lobe. There is no evidence of acute mass, mass effect, midline shift or hemorrhage. The ventricles and extra-axial CSF spaces are unremarkable. The brain parenchyma appears otherwise normal for the patient's age. No acute abnormalities of the bones is seen. IMPRESSION: Probable sequela of prior insult but detail is quite limited. No definite acute intracranial abnormality. MRI is much more sensitive and specific for acute ischemia than CT and if there is persistent concern for acute ischemia, I recommend MRI. Electronically signed by: Rainer Cortes 07/08/2020 7:11 PM CDT
--- NOTE | 2020-07-08 19:16 | CT ---
PROCEDURE: CT Angiography Chest With Intravenous Contrast CLINICAL INDICATION: The patient is 70 years old and is Female; elev ddimer, hypoxia, tachy, fever TECHNIQUE: Axial computed tomographic angiography images of the chest with intravenous contrast. This CT exam was performed using one or more of the following dose reduction techniques: automated exposure control, adjustment of the mA and/or kV according to patient size, and/or use of iterative reconstruction technique. MIP reconstructed images were created and reviewed. DLP: 710 mGy*cm COMPARISON: Chest radiograph of the same day and CT chest dated July 29, 2016. FINDINGS: PULMONARY ARTERIES: Unremarkable. No pulmonary embolism. AORTA: No acute findings. No thoracic aortic aneurysm. LUNGS: Diffuse interlobular septal thickening. Medial left lung base opacity measuring up to 2.9 cm, unchanged. Bibasilar scarring. Hyperinflation. PLEURAL SPACE: Unremarkable. No significant effusion. No pneumothorax. HEART: Global cardiomegaly. Prior median sternotomy and CABG surgery. No significant pericardial effusion. No evidence of RV dysfunction. BONES/JOINTS: Osteopenia and multilevel degenerative changes. No acute fracture. No dislocation. SOFT TISSUES: Unremarkable. LYMPH NODES: Unremarkable. No enlarged lymph nodes. LIVER: Suggestion of hepatic steatosis. ADRENALS: Fat-containing right adrenal lesion measuring 1.3 cm. IMPRESSION: 1. Suboptimal evaluation. No pulmonary embolism. 2. Cardiomegaly and interstitial edema. 3. Chronic lung changes and stable appearing medial left lung base opacity which may represent infectious process or scarring. 4. Fat-containing right adrenal lesion measuring 1.3 cm. Electronically signed by: Mohamud Johnson DO 07/08/2020 7:14 PM CDT
[2020-07-08] MEDS ORDERED: AZITHROMYCIN IV 500 MG in SODIUM CHLORIDE 0.9% 250ML 250 ML IVPB ONE (19:35)
--- NOTE | 2020-07-08 20:09 | ED.PDOC ---
History of Present Illness - General Chief Complaint: Respiratory Problem Stated Complaint: respiratory distress Time Seen by Provider: 07/08/20 13:55 Source: patient Exam Limitations: no limitations - History of Present Illness Initial Comments: The patient is a 70-year-old female presented emergency room secondary to confusion and fever. The patient is found to be mildly hypoxic on room air. She does have a longstanding history of COPD and recurrent pneumonias. Additionally she does have a history of chronic recurrent foot infections related to her previous diabetic ulcers and osteomyelitis. Her friend is reporting that she checked her temperature earlier and it was around 102. She was given Tylenol 3 and by the time she arrived here the temperature is lower. The patient does have some significant confusion. She does know where she is and what month it is. She did not remember very much of her medical history. She does have a flight of ideas. Initially upon first evaluation, the patient seemed intoxicated, however this is most likely delirium due to infection. Oxygen saturations ranged from 86 to 89% on room air. They do correct with 2 L. She does have bibasilar rales. The patient does have an open lateral wound to the right foot with some mild purulent drainage and surrounding erythema. She has been treated for osteomyelitis on this foot before and has had multiple amputations. No evidence of any abdominal pain. No urinary symptoms. The patient is very weak with trying to stand and move around. She does get very dizzy very easily. The patient is cooperative however. No nuchal rigidity. No sore throat. No runny nose. No syncope. The patient is tachycardic. Timing/Duration: unsure Severity: moderate Improving Factors: nothing Worsening Factors: nothing Associated Symptoms: cough, fever/chills, loss of appetite, malaise Allergies/Adverse Reactions: Allergies CI Pigment Blue 63 [From Cymbalta] Allergy (Mild, Verified 07/31/16 09:17) Rash Ciprofloxacin [From Cipro] Allergy (Mild, Verified 07/31/16 09:17) Rash Duloxetine [From Cymbalta] Allergy (Mild, Verified 07/31/16 09:18) Rash Latex Allergy (Mild, Verified 07/31/16 09:19) Rash states does not know if it is the powder or gloves itself that causes the rash Venlafaxine [From Effexor] Allergy (Mild, Verified 07/31/16 09:20) Rash Home Medications: Ambulatory Orders Captopril 12.5 mg PO BID #0 03/29/13 Clopidogrel Bisulfate [Plavix] 75 mg PO DAILY #0 03/29/13 Furosemide 40 mg PO DAILY #0 03/29/13 Metformin HCl 1,000 mg PO BID #0 03/29/13 Spironolactone 25 mg PO DAILY #0 03/29/13 Carvedilol [Coreg] 12.5 mg PO BID 07/28/16 Insulin Glargine [Lantus Solostar] 26 unit SC BEDTIME 07/28/16 Insulin Lispro [Humalog] 0 unit SC .SLIDING SCALE PRN 07/28/16 Bifidobacterium Infantis [Align] 4 mg PO BID #30 cap 08/02/16 Acetaminophen W/ Codeine [Tylenol/Codeine #4 300-60 mg] 1 ea PO TID PRN 08/27/19 Acetaminophen [Mapap] 500 mg PO TID PRN 08/27/19 Aspirin [Aspirin Childrens] 81 mg PO DAILY 08/27/19 Bupropion HCl [Wellbutrin Sr] 150 mg PO QAM 08/27/19 Cyanocobalamin Inj [Vitamin B-12 Inj] 1,000 mcg IM MONTHLY 08/27/19 Docusate Sodium [Stool Softener] 100 mg PO DAILY PRN 08/27/19 Escitalopram Oxalate [Lexapro] 5 mg PO DAILY 08/27/19 Pramipexole Dihydrochloride [Mirapex] 0.25 mg PO BEDTIME 08/27/19 Pregabalin [Lyrica] 150 mg PO DAILY 08/27/19 Semaglutide [Ozempic] 2 mg SC MO 08/27/19 Simvastatin 40 mg PO DAILY 08/27/19 diphenhydrAMINE HCL [Benadryl] 25 mg PO DAILY PRN 08/27/19 Review of Systems - Review of Systems Review of Systems: 07/08/20 20:09 Somewhat limited due to patient confusion. Constitutional: States: fever, malaise, weakness - Generalized EENTM: States: no symptoms reported Respiratory: States: cough, short of breath Cardiology: States: no symptoms reported Gastrointestinal/Abdominal: States: no symptoms reported Genitourinary: States: no symptoms reported Musculoskeletal: States: no symptoms reported Skin: States: see HPI Neurological: States: see HPI Endocrine: States: no symptoms reported All other Systems: No Change from Baseline Past Medical History (General) - Patient Medical History Hx Seizures: No Hx Stroke: No Hx Dementia: No Hx Asthma: No Hx of COPD: No Hx Cardiac Disorders: Yes Hx Congestive Heart Failure: Yes Hx Pacemaker: No Hx Hypertension: Yes Hx Thyroid Disease: Yes Hx Diabetes: Yes Hx Gastroesophageal Reflux: No Hx Renal Disease: No Hx Cancer: No Hx Hepatitis C: No Hx MRSA: Yes MRSA Source:: Ostomyleti - Vaccination History Hx Tetanus, Diphtheria Vaccination: Yes Hx Influenza Vaccination: Yes Hx Pneumococcal Vaccination: Yes - Social History Hx Tobacco Use: No Hx Chewing Tobacco Use: No Hx Alcohol Use: No Hx Substance Use: No Hx Substance Use Treatment: No Hx Depression: Yes Hx Physical Abuse: No Hx Emotional Abuse: No Hx Suspected Abuse: No Family Medical History - Family History Father Living Status: Hx Family Congestive Heart Failure: Yes - from heart problems Mother Family History: No Known Living Status: Hx Family;Other: cerosis of liver Physical Exam - Physical Exam General Appearance: Alert, Ill Appearing Eye Exam: bilateral normal Ears, Nose, Throat: hearing grossly normal, normal pharynx Neck: non-tender, full range of motion, supple Respiratory: no respiratory distress, no accessory muscle use, rales, rhonchi, wheezing Cardiovascular/Chest: no edema, tachycardia Peripheral Pulses: radial,right: 2+, radial,left: 2+ Gastrointestinal/Abdominal: non tender, soft Rectal Exam: deferred Back Exam: no CVA tenderness, no vertebral tenderness Extremity: normal range of motion, non-tender, no pedal edema, normal capillary refill - Of the hands, other - Previous amputation sites on both feet are noted. Packed the lateral wound to the right foot is noted with surrounding erythema and mild drainage Neurologic: attendant lodging facilities II-XII nml as tested, alert, other - Chronic peripheral neuropathy. Mildly slurred speech. Poor attention span. Mildly stuporous. Oriented x2. Skin Exam: other - See above Comments: Vital Signs - 24 hr 07/08/20 07/08/20 07/08/20 13:43 14:08 14:30 Temperature 100.3 F H 99.3 F Pulse Rate [ 113 H 112 H right brachial] Respiratory 28 H 28 H 22 Rate Blood Pressure 149/70 115/59 [right brachial ] O2 Sat by Pulse 91 L 96 Oximetry 07/08/20 07/08/20 17:00 18:01 Temperature 97.9 F 98.0 F Pulse Rate [ 109 H 106 H right brachial] Respiratory 28 H 20 Rate Blood Pressure 137/84 135/73 [right brachial ] O2 Sat by Pulse 99 97 Oximetry Progress - Progress Progress: 07/08/20 20:15 The patient is a 70-year-old female presented emergency room secondary to delirium and fever along with some generalized weakness. The patient was additionally found to be mildly hypoxic. The patient does appear to have a left lower lobe pneumonia and is being treated with cefepime and azithromycin. She does appear to be septicemic either from the pneumonia or from osteomyelitis right foot. For the osteomyelitis she is receiving vancomycin. Blood cultures have been done. The patient received a small fluid bolus in order to avoid fluid overload which has been a problem with the patient in the past. She does have a mild lactic acidosis and this will need to be followed closely. Wound culture has been performed. Blood cultures have been performed. The patient is not really producing much sputum for a sputum culture yet however. She has received breathing treatments and supplemental oxygen for the hypoxia. Admit for continued care. The patient will need to be followed closely for the diabetes. She did receive a stress dose of steroids. keren dalton [id number] - Results/Orders Results/Orders: 07/08/20 13:56 Telemetry .CONTINUOUS 07/08/20 14:00 EKG STAT 07/08/20 14:10 BLOOD CULTURE Stat 07/08/20 17:20 EKG shows sinus tachycardia with widened complex. Rate is 105 bpm. Criteria is present for LVH. Poor R wave progression anterior leads which is not new. Old lateral TX as well. Old inferior Q waves as well. Scattered T wave inversions which are not new either. Chest x-ray shows cardiomegaly and a left lower lobe infiltrate. Head CT shows chronic changes but no acute pathology. See report for details. CT scan of the right foot shows what is most likely osteomyelitis of the proximal fifth metatarsal. CT angiogram of the chest shows no evidence of any pulmonary embolus but is not a ideal study. There is some cardiomegaly. There are interstitial changes. There is a likely pneumonia in the left lower lobe superimposed on some scarring. See report for details. Laboratory Results - last 24 hr 07/08/20 07/08/20 07/08/20 14:10 14:10 14:10 WBC 14.3 H RBC 4.66 Hgb 13.1 Hct 39.4 MCV 84.5 MCH 28.0 MCHC 33.2 RDW 16.0 H Plt Count 236 MPV 8.7 Absolute Neuts (auto) 13.00 H Absolute Lymphs (auto) 0.70 L Absolute Monos (auto) 0.50 Absolute Eos (auto) 0.00 Absolute Basos (auto) 0.10 Neutrophils % 90.9 H Lymphocytes % 4.7 L Monocytes % 3.6 Eosinophils % 0.3 L Basophils % 0.5 PT 10.1 INR 1.02 PTT (SP) 28.1 D-Dimer, Quantitative 780.0 H* Sodium 138 Potassium 4.5 Chloride 103 Carbon Dioxide 24 Anion Gap 15.5 BUN 23 H Creatinine 1.01 BUN/Creatinine Ratio 22.8 H POC Glucose Random Glucose 238 H Serum Osmolality 287.1 Lactic Acid Calcium 8.9 Magnesium 1.9 Total Bilirubin 0.4 AST 20 ALT 18 Alkaline Phosphatase 67 Creatine Kinase 44 CK-MB (CK-2) 1.3 CK-MB (CK-2) % Not Reportable Troponin I < 0.02 C-Reactive Protein 5.6 H B-Natriuretic Peptide 604.0 H* Serum Total Protein 7.7 Albumin 3.8 Globulin 3.9 H Albumin/Globulin Ratio 1.0 L TSH 3.03 Urine Color Urine Appearance Urine pH Ur Specific [place] Urine Protein Urine Glucose (UA) Urine Ketones Urine Blood Urine Nitrite Urine Bilirubin Urine Urobilinogen Ur Leukocyte Esterase Urine RBC Urine WBC Ur Epithelial Cells Amorphous Sediment Urine Bacteria 07/08/20 07/08/20 07/08/20 14:10 14:10 14:48 WBC RBC Hgb Hct MCV MCH MCHC RDW Plt Count MPV Absolute Neuts (auto) Absolute Lymphs (auto) Absolute Monos (auto) Absolute Eos (auto) Absolute Basos (auto) Neutrophils % Lymphocytes % Monocytes % Eosinophils % Basophils % PT INR PTT (SP) D-Dimer, Quantitative Sodium Potassium Chloride Carbon Dioxide Anion Gap BUN Creatinine BUN/Creatinine Ratio POC Glucose 223 H Random Glucose Serum Osmolality Lactic Acid 3.0 H* Calcium Magnesium Total Bilirubin AST ALT Alkaline Phosphatase Creatine Kinase CK-MB (CK-2) CK-MB (CK-2) % Troponin I C-Reactive Protein B-Natriuretic Peptide Serum Total Protein Albumin Globulin Albumin/Globulin Ratio TSH Urine Color Yellow Urine Appearance Cloudy Urine pH 6.5 Ur Specific [place] 1.020 Urine Protein 30 Urine Glucose (UA) Negative Urine Ketones Negative Urine Blood Moderate H Urine Nitrite Negative Urine Bilirubin Negative Urine Urobilinogen 1.0 Ur Leukocyte Esterase Negative Urine RBC 5-10 H Urine WBC 3-5 H Ur Epithelial Cells 5-10 Amorphous Sediment 2+ Urine Bacteria 1+ Departure - Departure Clinical Impression: Septicemia, Osteomyelitis of metatarsal, Metabolic encephalopathy, Lactic acidosis Pneumonia involving left lung Qualifiers: Pneumonia type: due to unspecified organism Lung location: lower lobe of lung Qualified Code(s): J18.9 - Pneumonia, unspecified organism Disposition: Admit Patient Condition: Poor Departure Forms: ED Discharge - Pt. Copy, Patient Portal Self Enrollment Referrals: Solitario Carrizales MD [Primary Care Provider] - 1-2 Weeks Home Medications: Ambulatory Orders Captopril 12.5 mg PO BID #0 03/29/13 Clopidogrel Bisulfate [Plavix] 75 mg PO DAILY #0 03/29/13 Furosemide 40 mg PO DAILY #0 03/29/13 Metformin HCl 1,000 mg PO BID #0 03/29/13 Spironolactone 25 mg PO DAILY #0 03/29/13 Carvedilol [Coreg] 12.5 mg PO BID 07/28/16 Insulin Glargine [Lantus Solostar] 26 unit SC BEDTIME 07/28/16 Insulin Lispro [Humalog] 0 unit SC .SLIDING SCALE PRN 07/28/16 Bifidobacterium Infantis [Align] 4 mg PO BID #30 cap 08/02/16 Acetaminophen W/ Codeine [Tylenol/Codeine #4 300-60 mg] 1 ea PO TID PRN 08/27/19 Acetaminophen [Mapap] 500 mg PO TID PRN 08/27/19 Aspirin [Aspirin Childrens] 81 mg PO DAILY 08/27/19 Bupropion HCl [Wellbutrin Sr] 150 mg PO QAM 08/27/19 Cyanocobalamin Inj [Vitamin B-12 Inj] 1,000 mcg IM MONTHLY 08/27/19 Docusate Sodium [Stool Softener] 100 mg PO DAILY PRN 08/27/19 Escitalopram Oxalate [Lexapro] 5 mg PO DAILY 08/27/19 Pramipexole Dihydrochloride [Mirapex] 0.25 mg PO BEDTIME 08/27/19 Pregabalin [Lyrica] 150 mg PO DAILY 08/27/19 Semaglutide [Ozempic] 2 mg SC MO 08/27/19 Simvastatin 40 mg PO DAILY 08/27/19 diphenhydrAMINE HCL [Benadryl] 25 mg PO DAILY PRN 08/27/19 Decision To Admit - Decistion To Admit Decision to Admit Reason: Medical Nature Decision to Admit Date: 07/08/20 Decision to Admit Time: 20:18
--- NOTE | 2020-07-08 20:19 | HP ---
SUPERVISING PHYSICIAN: Jun Malik MD CHIEF COMPLAINT: Shortness of breath. HISTORY OF PRESENT ILLNESS: This is a 70-year-old female patient who presented to the Emergency Room with confusion, fever and shortness of breath. She initially was found to be hypoxic in the mid 80s on room air. She did come up to 89-90% on 1 liter nasal cannula. She has a history of chronic obstructive pulmonary disease. She also has a history of osteomyelitis recently of the right foot. She is being treated by wound care in [place]. Her temperature at home was reported to be 102 degrees. Initially, she was very confused and she actually did not know where she was, nor did she know what month it was, but she had received some IV fluids and her initial vital signs showed temperature 100.3 with heart rate 113, blood pressure 149/70, respiratory rate 28, O2 saturation 89-91% on 1 liter nasal cannula. Lab was drawn and her WBCs were 14,300, hemoglobin 13.1, hematocrit 39.4. She had a left shift on her differential. INR was 1.02, PTT 28, D-dimer 780. Electrolytes were basically within normal limits. BUN 23, creatinine 1.01, glucose 238, lactic acid 3. Liver enzymes were unremarkable. Troponin less than 0.02. C-reactive protein 5.6, BMP 604. Urinalysis was unremarkable except for moderate amount of urine blood, 5 to 10 urine RBCs and 3 to 5 urine WBCs. She also had an area to the lateral aspect of her right foot that is edematous and erythematous with some drainage which was cultured. Blood cultures were drawn. COVID panel was done and was negative. Head CT showed probable sequelae of prior insult, but detail is quite limited. No definite acute intracranial abnormality. MRI is much more sensitive and specific. If persistent, consider MRI. Chest and thorax CTA shows 1) Suboptimal evaluation with no pulmonary embolism. 2) Cardiomegaly and interstitial edema. 3) Chronic lung changes, stable appearing medial left lung base opacity which may represent infectious process or scarring. 4) Fat containing right adrenal lesion measuring 1.3 cm. Her lower extremity CT shows soft tissue defect in the right foot laterally along the plantar aspect adjacent to the residual fifth metatarsal base with findings worrisome for osteomyelitis in the residual fifth metatarsal. Her chest x-ray shows left lung interstitial and alveolar infiltrate observed, poor respiratory effect is noted. She was given azithromycin and cefepime as well as 60 mg of Solu-Medrol. She was also given promethazine, some gentle IV fluids and a dose of vancomycin. The patient was admitted to the hospital in stable condition. PAST MEDICAL HISTORY: 1. Diabetes mellitus, type 2, on insulin therapy. 2. Chronic obstructive pulmonary disease. 3. Hypertension. 4. Peripheral vascular disease. 5. History of osteomyelitis due to diabetic complications requiring amputation of all of her right toes. She has been treated for osteomyelitis in the past. 6. Congestive heart failure with an ejection fraction of 30%. PAST SURGICAL HISTORY: 1. CABG x4 in 2007. 2. x2. 3. Resection of left upper lobe of the lung due to necrotizing pneumonia. 4. Left carotid endarterectomy in 2014. 5. 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 CURRENT MEDICATIONS: Per the EMR and awaiting verification. ALLERGIES: CI PIGMENT BLUE 63, CIPROFLOXACIN, DULOXETINE, LATEX, VENLAFAXINE. FAMILY HISTORY: Noncontributory. SOCIAL HISTORY: She is . She lives in [place]. She has one son. There is no history of tobacco, ETOH or illicit drug use. REVIEW OF SYSTEMS: GENERAL: Positive for fever, chills. Negative for weight changes. HEENT: Positive for sinus symptoms. Negative for earaches, vision changes or sore throat. RESPIRATORY: Positive for coughing and shortness of breath. Negative for wheezing CARDIAC: Negative for chest pain, palpitations or tachycardia. GASTROINTESTINAL: Negative for nausea, vomiting, diarrhea, constipation. GENITOURINARY: Negative for hematuria, dysuria or polyuria. MUSCULOSKELETAL: Negative for arthralgias, myalgias except for the pain in her right foot. NEUROLOGIC: Negative for headache, weakness or seizures. PHYSICAL EXAMINATION: VITAL SIGNS: Temperature 102, heart rate 99, blood pressure 129/70, respiratory rate 22 to 24, O2 saturation 97% on 2.5 liters nasal cannula. GENERAL: This is a 70-year-old obese female who is lying in her hospital bed. She is in mild respiratory distress. She also looks to be in moderate pain. HEENT: Normocephalic, atraumatic. Pupils are equal and reactive. Oropharynx is clear. NECK: Supple without mass. RESPIRATORY: Diminished at the bases, especially on the left side with a few scattered rhonchi. She does get tachypneic with speaking and can only speak in 2 to 3 word phrases. CHEST: There is equal rise and fall of the chest with inspiration and expiration. CARDIOVASCULAR: Regular rate and rhythm. At times, she is tachycardic. GASTROINTESTINAL: Abdomen is soft, nondistended, nontender. Bowel sounds are positive. EXTREMITIES: All of her toes are amputated on the right foot. She does have a wound to the lateral aspect of her right foot that is draining a small amount of purulent fluid with some clear streaks in it. It is tender to palpation. There is a very small amount of redness and edema surrounding the wound. Pedal pulses are +1 and faintly palpable. NEUROLOGIC: Awake, alert and oriented times three although she does get slightly confused at times, but is easily reoriented. Cranial nerves II-XII are grossly intact as tested. SKIN: Warm and dry. LABORATORY: Labs and films are as per history of present illness. We are awaiting a followup lactic acid. IMPRESSION: 1. Sepsis related to left lower lobe pneumonia and right foot cellulitis. Her WBCs on admission were 14,300 with a temperature up to 102, heart rate 113 and respiratory rate of 28. She also had a lactic acid of 3. 2. Left lower lobe pneumonia, most likely community acquired. 3. Right foot cellulitis worrisome for osteomyelitis. She has a previous history of osteomyelitis of that same foot and required amputation of all her toes. 4. Diabetes mellitus, type 2, on insulin therapy. 5. Chronic obstructive pulmonary disease with exacerbation. 6. Hypertension. 7. Congestive heart failure with an ejection fraction of 30%, questionable exacerbation although her BNP is greater than 600 and she is short of breath. PLAN: The patient has been admitted to the hospital. The pneumonia guidelines will be initiated. I have continued her on cefepime and azithromycin. She will also be on vancomycin per pharmacy protocol. She will also be on aggressive pulmonary hygiene including scheduled and p.r.n. breathing treatments. An MRI of that right foot is ordered for in the morning to rule out osteomyelitis. I spoke with her primary care physician, Dr. Solitario Carrizales, and at the request of family, she will be treated for any surgical intervention of the foot in [place], but we will treat her pneumonia here in [place]. Her home medications will be restarted as soon as they are verified. I have put her on sliding scale insulin per protocol, a proton pump inhibitor for ulcer prophylaxis as well as Lovenox for DVT prophylaxis. I ordered lab and a chest x-ray in the morning. We will follow as needed. #[id number] [facility]
[2020-07-08] MEDS ORDERED: ACETAMINOPHEN 325 MG TAB PO PRN (21:00)
[2020-07-08] MEDS ORDERED: ALBUTEROL SULFATE 2.5 MG/3 ML VIAL NEB PRN (21:35)
[2020-07-08] MEDS ORDERED: GLUCAGON INJ 1 MG VIAL SUBCU PRN (21:35)
[2020-07-08] MEDS ORDERED: SODIUM CHLORIDE 0.9% (FLUSH) 10 ML SYG IV PRN (21:35)
[2020-07-08] MEDS ORDERED: DEXTROSE 50% 25 GM/50 ML SYG IV PRN (21:35)
[2020-07-08] MEDS ORDERED: IBUPROFEN 400 MG TAB PO PRN (21:35)
[2020-07-08] MEDS ORDERED: SODIUM CHLORIDE 0.45% 1000ML 1,000 ML IVS ONE (21:45)
[2020-07-08] MEDS: MORPHINE SULFATE INJ 10 MG/ML VIAL IV PRN (22:01)
[2020-07-08] MEDS: IV SET AND CAP CHANGE INJ INJ SCH (22:08)
[2020-07-08] MEDS: CARVEDILOL 12.5 MG TAB PO SCH (23:20)
[2020-07-09] MEDS: CAPTOPRIL 12.5 MG PO SCH ×2 (00:57→09:05)
[2020-07-09] MEDS: PRAMIPEXOLE 0.25 MG TAB PO SCH ×2 (00:58→20:53)
[2020-07-09] MEDS ORDERED: CEFEPIME 2 GM VIAL ONE (05:16)
[2020-07-09] MEDS ORDERED: LEVOTHYROXINE SODIUM 0.025 MG TAB ONE (05:16)
[2020-07-09] MEDS ORDERED: SODIUM CHL 0.9% 50ML MIN-BAG+ 50 ML IVPB ONE (05:16)
[2020-07-09] MEDS: CEFEPIME 2 GM in SODIUM CHL 0.9% 50ML MIN-BAG+ 50 ML IVPB SCH ×2 (05:24→17:04)
[2020-07-09] MEDS: MORPHINE SULFATE INJ 10 MG/ML VIAL IV PRN ×2 (06:02→21:22)
[2020-07-09] MEDS ORDERED: NON-FORMULARY MEDICATION 1 EA MIS (Levothyroxine Sodium [Levothyroxine Sodium] 50 MCG) PO SCH (06:30)
[2020-07-09] MEDS ORDERED: PANTOPRAZOLE SODIUM IV 40 MG VIAL IV SCH (06:30)
[2020-07-09] MEDS ORDERED: VANCOMYCIN PER PHARMACY IVPB SCH (07:00)
--- NOTE | 2020-07-09 07:34 | RAD ---
Exam(s): XR CHEST 1 VIEW: 07/09/2020 7:00 AM CDT Indication: Pneumonia Comparison Study Date: 07/08/2020 Technique: AP chest radiograph. Findings: Interstitial prominence is unchanged. No focal airspace abnormality. No pleural effusion or pneumothorax. Mild cardiomegaly unchanged. Normal mediastinal contours. No bone abnormality is identified. IMPRESSION: Interstitial edema is suggested. No significant change from prior exam. Electronically signed by: Rainer Abdalla MD 07/09/2020 7:33 AM CDT
[2020-07-09] MEDS ORDERED: ESCITALOPRAM 10 MG TAB ONE (07:38)
[2020-07-09] MEDS ORDERED: metFORMIN HCL 500 MG TAB ONE (07:39)
[2020-07-09] MEDS: IPRATROPIUM/ALBUTEROL 3 ML VIAL INH SCH ×4 (08:25→19:45)
--- NOTE | 2020-07-09 08:59 | MRI ---
EXAM DESCRIPTION: Lower Extremity,Right CLINICAL HISTORY: possible osteomyelitis of right foot, lateral side. COMPARISON: CT 07/08/2020 TECHNIQUE: MRI of the right foot was performed with multiplanar multi sequence imaging without intravenous contrast. FINDINGS: Changes of fifth ray amputation through the metatarsal base. Soft tissue ulceration/sinus tract (measuring approximately 2.4 cm in length) along the lateral aspect of the forefoot containing a small amount of soft tissue gas extends to the main fifth metatarsal base. Resection margin irregularity with underlying low T1/high T2 signal at the fifth metatarsal base is consistent with osteomyelitis. Subtle cortical irregularity and signal alteration along the lateral cuboid cortical margins also suspicious for early osteomyelitis (series 501 image 11). There is no drainable fluid collection or abscess. Changes of first-fourth toe amputation at the MTP joint. Mild reactive edema at the fourth metatarsal base without definite evidence of bone marrow replacement. The flexor and extensor tendons are intact. Minimal reactive tenosynovitis of the extensor and peroneal tendons.. The visualized Lisfranc ligament complex is intact. Mild generalized nonspecific muscular edema. IMPRESSION: 1. Lateral forefoot soft tissue ulceration/sinus tract with underlying osteomyelitis of the fifth metatarsal base. 2. Cuboid lateral cortical irregularity and signal alteration suspicious for early osteomyelitis. 3. Mild reactive tenosynovitis of the lateral extensor and peroneal tendons. Electronically signed by: Terry Daniel DO 07/09/2020 8:58 AM CDT
[2020-07-09] MEDS: DOCUSATE SODIUM 100 MG CAP PO SCH (09:00)
[2020-07-09] MEDS: CARVEDILOL 12.5 MG TAB PO SCH ×2 (09:00→20:53)
[2020-07-09] MEDS: SPIRONOLACTONE 25 MG TAB PO SCH (09:01)
[2020-07-09] MEDS: ESCITALOPRAM 10 MG TAB PO SCH (09:01)
[2020-07-09] MEDS: CLOPIDOGREL 75 MG TAB PO SCH (09:02)
[2020-07-09] MEDS: BIFIDOBACTERIUM INFANTIS 4 MG CAP PO SCH ×2 (09:02→20:53)
[2020-07-09] MEDS: metFORMIN HCL 500 MG TAB PO SCH ×2 (09:02→17:03)
[2020-07-09] MEDS: FUROSEMIDE 40 MG TAB PO SCH (09:02)
[2020-07-09] MEDS: PREGABALIN 75 MG CAP PO SCH (09:03)
[2020-07-09] MEDS: SACUBITRIL VALSARTAN PO SCH ×2 (09:03→20:54)
[2020-07-09] MEDS: SODIUM CHLORIDE 0.9% (FLUSH) 10 ML SYG IV SCH ×2 (09:03→20:54)
[2020-07-09] MEDS: ASPIRIN (CHEWABLE) 81 MG TAB PO SCH (09:06)
[2020-07-09] MEDS ORDERED: VANCOMYCIN HCL INJ 1,000 MG VIAL IVPB ONE (09:13)
[2020-07-09] MEDS ORDERED: VANCOMYCIN HCL INJ 500 MG VIAL ONE (09:14)
[2020-07-09] MEDS ORDERED: SODIUM CHLORIDE 0.9% 250ML 250 ML ONE (09:14)
[2020-07-09] MEDS: VANCOMYCIN HCL INJ 1,000 MG, VANCOMYCIN HCL INJ 500 MG in SODIUM CHLORIDE 0.9% 250ML 25... IVPB SCH (09:18)
[2020-07-09] MEDS: AZITHROMYCIN IV 500 MG in SODIUM CHLORIDE 0.9% 250ML 250 ML IVPB SCH (13:29)
[2020-07-09] MEDS: INSULIN LISPRO 100 UNITS/ML PEN SUBCU SCH ×2 (17:04→21:04)
[2020-07-09] MEDS ORDERED: ATORVASTATIN 20 MG TAB PO ONE (19:10)
[2020-07-09] MEDS ORDERED: ENOXAPARIN SODIUM 40 MG/0.4 ML SYG SUBCU ONE (19:10)
[2020-07-09] MEDS: ATORVASTATIN 20 MG TAB PO SCH (20:53)
[2020-07-09] MEDS: ENOXAPARIN SODIUM 40 MG/0.4 ML SYG SUBCU SCH (20:53)
--- NOTE | 2020-07-09 22:10 | PN ---
SUPERVISING PHYSICIAN: Jun Malik M.D. DATE: 07/09/20 SUBJECTIVE: The patient is doing well this morning. Her son is at bedside and notes that she is back to her baseline status. I did talk to Dr. Joel's office this morning in regards to her lower extremity findings on MRI and the patient's plan of care as well as Dr. Carrizales. The patient and her son are both understand the current plan of care at this point is to continue treatment for her underlying pneumonia and to transition her to outpatient management so we can get the osteomyelitis treatment plan started as an outpatient. She remains alert. She has no chest pains. No significant shortness of breath at rest. No nausea or vomiting. OBJECTIVE: VITAL SIGNS: Temperature 97.4, pulse 70, blood pressure 100/66, respirations 16, satting 91% on room air. GENERAL: The patient is resting comfortably. She does not appear to be in any acute distress. She is visiting with her son. CHEST: Lung sounds are still diminished towards the bases. There is a very faint rhonchi heard on the left side which is more prominent on the lateral aspect, but she is now talking in full sentences compared to admission. There is notable equal inspiratory and expiratory phases. HEART: Regular rate and rhythm. ABDOMEN: Soft, non-tender. Positive bowel sounds. EXTREMITIES: No significant change. Wound on her right foot has a bandage in place and cultures are still pending. Pulses are 1+. NEUROLOGIC: She is alert and oriented times three. SKIN: Warm, pink and dry except for noted above right foot. LABORATORY: White count still a little elevated at 14,700, however she did get a dose of Solu-Medrol in the Emergency Room. Hemoglobin is 11.4, hematocrit 35.3, platelet count 202,000. Differential shows a left shift. Chemistries show sodium 134, otherwise electrolytes were within normal limits. BUN 23, creatinine 0.88. Blood sugars were elevated but are under better control now ranging from 184 to 258. Lactic acid normalized to 1.6. Magnesium is normal at 1.9. Liver functions are all within normal limits. MICROBIOLOGY: Wound culture gram stain showed rare polymorphonuclear leukocytes with rare epithelial cells, but no organisms were seen. Cultures on the wound are pending. Blood cultures remain negative at 24 hours. RADIOLOGY: Chest x-ray this morning per radiology interpretation showed interstitial edema suggested with no significant change from previous exam of admission. MRI of the right foot per radiology interpretation showed osteomyelitis of the fifth metatarsal base as well as early suspicious osteomyelitis involving the cuboid lateral aspect with some mild reactive tenosynovitis of the lateral extensor and peroneal tendons. Please see that full report for details. ASSESSMENT: 1. Left lower lobe pneumonia, community acquired. 2. Sepsis secondary to #1. 3. Chronic obstructive pulmonary disease with exacerbation secondary to #1. 4. Osteomyelitis of the right foot with a chronic diabetic ulcer as noted findings on MRI. 5. Diabetes mellitus, type 2, on insulin therapy. 6. Hypertension. 7. Congestive heart failure with a systolic dysfunction with an ejection fraction of 30% with an elevated BNP on admission associated with #1. PLAN: Will continue with current antibiotic coverage at this point with Cefepime and azithromycin, and Vancomycin per Pharmacy protocol. I have put a call in to Dr. Livingston and not heard back from her yet to help with management of the antibiotic treatment of the osteomyelitis. I have also talked to Dr. Joel's office. They want to see her as an outpatient on Monday after she is discharged after treatment for the underlying pneumonia. Once we get a better plan of care in place with Dr. Livingston, more likely she will need a PICC line placement and I would think that she probably would go home probably on at least Vancomycin, but wait until we speak to Dr. Livingston to make a full decision on the antibiotic as an outpatient. I did talk to Dr. Carrizales with the initial plan of care at this point. I do not think there is a reason to have a surgical consultation as this has been chronic after talking to Dr. Joel's office. Of course if she does make a change, certainly will address that, but at this point I think we can continue treatment for the underlying pneumonia, coverage for the osteomyelitis and transition her to outpatient management for further management of the ongoing chronic osteomyelitis. She does remain on DVT prophylaxis per protocol. She is on sliding scale per protocol. She is also on Protonix for ulcer prophylaxis per protocol. Will follow labs and anticipate hopefully discharging within the next 2 to 3 days. Until then will continue to monitor and treat as needed. [facility][id number] [facility]
[2020-07-10] MEDS: VANCOMYCIN HCL INJ 1,000 MG, VANCOMYCIN HCL INJ 500 MG in SODIUM CHLORIDE 0.9% 250ML 25... IVPB SCH ×3 (03:06→22:09)
[2020-07-10] MEDS: CEFEPIME 2 GM in SODIUM CHL 0.9% 50ML MIN-BAG+ 50 ML IVPB SCH ×2 (05:46→18:16)
[2020-07-10] MEDS: LEVOTHYROXINE SODIUM 0.025 MG TAB PO SCH (05:47)
[2020-07-10] MEDS: PANTOPRAZOLE SODIUM TAB 40 MG PO SCH (05:47)
--- NOTE | 2020-07-10 06:09 | RAD ---
EXAM DESCRIPTION: Chest,1 View CLINICAL HISTORY: PICC line placement COMPARISON: 07/09/2020 FINDINGS: Single frontal view of the chest. Tubes and lines: Right arm PICC with tip in the SVC. Leads overlie the chest. Cardiomediastinal silhouette: Prior median sternotomy. Cardiomegaly. Lungs: Bilateral interstitial opacities are stable. Left costophrenic angle and left lateral lung not evaluated on this study. No pneumothorax. Bones: Stable. Upper abdomen: Stable. IMPRESSION: 1. Right arm PICC with tip in the SVC. Otherwise stable appearance of the chest. Electronically signed by: Alonso Henao 07/10/2020 6:07 AM CDT
[2020-07-10] MEDS: INSULIN LISPRO 100 UNITS/ML PEN SUBCU SCH ×4 (07:19→21:21)
[2020-07-10] MEDS: metFORMIN HCL 500 MG TAB PO SCH ×2 (07:22→16:51)
[2020-07-10] MEDS: HYDROcodone 5MG/APAP 325MG 1 EA TAB PO PRN ×2 (08:33→17:01)
[2020-07-10] MEDS: BIFIDOBACTERIUM INFANTIS 4 MG CAP PO SCH ×2 (08:36→21:07)
[2020-07-10] MEDS: ESCITALOPRAM 10 MG TAB PO SCH (08:36)
[2020-07-10] MEDS: DOCUSATE SODIUM 100 MG CAP PO SCH (08:36)
[2020-07-10] MEDS: ASPIRIN (CHEWABLE) 81 MG TAB PO SCH (08:37)
[2020-07-10] MEDS: SPIRONOLACTONE 25 MG TAB PO SCH (08:37)
[2020-07-10] MEDS: Wellbutrin XL 150 MG TAB PO SCH (08:37)
[2020-07-10] MEDS: FUROSEMIDE 40 MG TAB PO SCH (08:37)
[2020-07-10] MEDS: CARVEDILOL 12.5 MG TAB PO SCH ×2 (08:37→21:07)
[2020-07-10] MEDS: PREGABALIN 75 MG CAP PO SCH (08:38)
[2020-07-10] MEDS: CLOPIDOGREL 75 MG TAB PO SCH (08:38)
[2020-07-10] MEDS: IPRATROPIUM/ALBUTEROL 3 ML VIAL INH SCH ×4 (08:43→19:30)
[2020-07-10] MEDS: SODIUM CHLORIDE 0.9% (FLUSH) 10 ML SYG IV SCH ×2 (09:47→21:10)
[2020-07-10] MEDS: SACUBITRIL VALSARTAN PO SCH ×2 (09:47→21:19)
[2020-07-10] MEDS: AZITHROMYCIN IV 500 MG in SODIUM CHLORIDE 0.9% 250ML 250 ML IVPB SCH (12:59)
[2020-07-10] MEDS: ATORVASTATIN 20 MG TAB PO SCH (21:07)
[2020-07-10] MEDS: PRAMIPEXOLE 0.25 MG TAB PO SCH (21:07)
[2020-07-10] MEDS: ENOXAPARIN SODIUM 40 MG/0.4 ML SYG SUBCU SCH (21:07)
[2020-07-10] MEDS: MORPHINE SULFATE INJ 10 MG/ML VIAL IV PRN (21:16)
--- NOTE | 2020-07-10 22:39 | PN ---
SUPERVISING PHYSICIAN: Jun Malik M.D. DATE: 07/10/20 SUBJECTIVE: The patient continues to do well. She has been working with Physical Therapy. I did discuss the plan of care with her. She got a PICC line placed without any complications yesterday and she continues on antibiotics. Knowing that she will probably have to continue with outpatient management but yet to be determined, and again discuss plan of care, probably continue with treatment antibiotics for both underlying pneumonia and her lower extremity cellulitis of the right foot until Monday. OBJECTIVE: VITAL SIGNS: T max was 97.9, pulse 98, blood pressure 118/76, respirations 20, satting 98% on room air. GENERAL: The patient is resting comfortably. Does not appear to be in any distress. CHEST: Lung sounds are just a little diminished towards the bases but fairly clear. I do not hear any rhonchi or wheezing. HEART: Regular rate and rhythm. ABDOMEN: Soft, non-tender. Positive bowel sounds. EXTREMITIES: Continues to have a clean bandage in place to the right foot. Pulses are unchanged at 1+. NEUROLOGIC: She is alert and oriented times three. SKIN: Warm, pink and dry. LABORATORY: White count now has normalized at 9,300, hemoglobin 10.9, hematocrit 32.9, platelet count 186,000. Differential shows a continued left shift. Chemistries are showing normal electrolytes with creatinine 0.84, blood sugars range between 138 to 239. MICROBIOLOGY: Preliminary cultures on the wound culture are still pending. MRSA surveillance culture preliminary shows no growth at 24 hours. Blood cultures remain negative. RADIOLOGY: Chest x-ray this morning per radiology interpretation showed PICC line in place with the tip in the SVC, otherwise appearance of the chest looks to be stable with continued bilateral interstitial opacities. ASSESSMENT: 1. Left lower lobe pneumonia, community acquired. 2. Sepsis secondary to #1. 3. Chronic obstructive pulmonary disease with exacerbation secondary to #1. 4. Osteomyelitis of the right foot with a chronic diabetic ulcer as noted findings on MRI. 5. Diabetes mellitus, type 2, on insulin therapy. 6. Hypertension. 7. Congestive heart failure with a systolic dysfunction with an ejection fraction of 30% with an elevated BNP on admission associated with #1. PLAN: The patient showed good progress with the current plan of care. Will continue antibiotics at this point with Cefepime, azithromycin and Vancomycin. Will try to get in contact with Dr. Livingston. She has her PICC line placement done yesterday. Will keep that per protocol. The patient is still being treated for underlying pneumonia. I anticipate at least another 24 to 48 hours for good coverage of that as well as the underlying osteomyelitis to that foot. I did discuss with her that more likely will discharge her on Monday if she is doing okay clinically and she will followup with Dr. Joel's office on Monday following discharge for further plan of care. Until then will continue to monitor and treat as needed. #[id number] [facility]
[2020-07-11] MEDS: HYDROcodone 5MG/APAP 325MG 1 EA TAB PO PRN ×4 (03:31→20:39)
[2020-07-11] MEDS: CEFEPIME 2 GM in SODIUM CHL 0.9% 50ML MIN-BAG+ 50 ML IVPB SCH ×2 (05:39→17:42)
[2020-07-11] MEDS: LEVOTHYROXINE SODIUM 0.025 MG TAB PO SCH (05:50)
[2020-07-11] MEDS: PANTOPRAZOLE SODIUM TAB 40 MG PO SCH (05:50)
[2020-07-11] MEDS: metFORMIN HCL 500 MG TAB PO SCH ×2 (07:49→16:47)
[2020-07-11] MEDS: INSULIN LISPRO 100 UNITS/ML PEN SUBCU SCH ×4 (07:55→21:30)
[2020-07-11] MEDS: IPRATROPIUM/ALBUTEROL 3 ML VIAL INH SCH ×4 (08:45→19:44)
--- NOTE | 2020-07-11 09:49 | RAD ---
PROCEDURE: XR Chest, 1 View CLINICAL INDICATION: The patient is 70 years old and is Female; tachycardia MAIN TECHNIQUE: Frontal view of the chest. COMPARISON: Comparison is made to the prior radiograph from one day earlier. FINDINGS: LUNGS: Moderate perihilar vascular congestion is stable. PLEURAL SPACE: There is no pneumothorax. There are no pleural effusions noted. HEART: Heart size is difficult to assess. MEDIASTINUM: The mediastinal contour is normal. BONES/JOINTS: There are median sternotomy wires identified in the midline attesting to prior cardiac surgery. VASCULATURE: See above. TUBES, LINES AND DEVICES: There is a stable RIGHT sided PICC line again noted. There are electrocardiogram leads present. IMPRESSION: Moderate perihilar vascular congestion is stable. Electronically signed by: Stevenson Small MD 07/11/2020 9:48 AM CDT
[2020-07-11] MEDS: Wellbutrin XL 150 MG TAB PO SCH (09:51)
[2020-07-11] MEDS: DOCUSATE SODIUM 100 MG CAP PO SCH (09:51)
[2020-07-11] MEDS: FUROSEMIDE 40 MG TAB PO SCH (09:51)
[2020-07-11] MEDS: PREGABALIN 75 MG CAP PO SCH (09:51)
[2020-07-11] MEDS: BIFIDOBACTERIUM INFANTIS 4 MG CAP PO SCH ×2 (09:51→20:35)
[2020-07-11] MEDS: CLOPIDOGREL 75 MG TAB PO SCH (09:51)
[2020-07-11] MEDS: ESCITALOPRAM 10 MG TAB PO SCH (09:52)
[2020-07-11] MEDS: SPIRONOLACTONE 25 MG TAB PO SCH (09:52)
[2020-07-11] MEDS: CARVEDILOL 12.5 MG TAB PO SCH ×2 (09:52→20:35)
[2020-07-11] MEDS: SODIUM CHLORIDE 0.9% (FLUSH) 10 ML SYG IV SCH ×2 (09:55→20:36)
[2020-07-11] MEDS: ASPIRIN (CHEWABLE) 81 MG TAB PO SCH (09:55)
[2020-07-11] MEDS: SACUBITRIL VALSARTAN PO SCH ×2 (11:09→20:36)
[2020-07-11] MEDS: AZITHROMYCIN IV 500 MG in SODIUM CHLORIDE 0.9% 250ML 250 ML IVPB SCH (11:59)
[2020-07-11] MEDS: VANCOMYCIN HCL INJ 1,000 MG, VANCOMYCIN HCL INJ 500 MG in SODIUM CHLORIDE 0.9% 250ML 25... IVPB SCH (15:11)
[2020-07-11] MEDS ORDERED: LEVALBUTEROL NEBS 1.25 MG/3 ML VIAL NEB ONE (16:42)
[2020-07-11] MEDS: ENOXAPARIN SODIUM 40 MG/0.4 ML SYG SUBCU SCH (20:35)
[2020-07-11] MEDS: PRAMIPEXOLE 0.25 MG TAB PO SCH (20:35)
[2020-07-11] MEDS: ATORVASTATIN 20 MG TAB PO SCH (20:35)
[2020-07-11] MEDS ORDERED: INSULIN DETEMIR 100 UNITS/ML PEN SUBCU ONE (21:27)
[2020-07-11] MEDS: INSULIN DETEMIR 100 UNITS/ML PEN SUBCU SCH (21:30)
[2020-07-12] MEDS ORDERED: LEVALBUTEROL NEBS 1.25 MG/3 ML VIAL NEB PRN (01:27)
[2020-07-12] MEDS: IV SET AND CAP CHANGE INJ INJ SCH (04:47)
[2020-07-12] MEDS: HYDROcodone 5MG/APAP 325MG 1 EA TAB PO PRN ×3 (05:49→20:13)
[2020-07-12] MEDS: LEVOTHYROXINE SODIUM 0.025 MG TAB PO SCH (05:49)
[2020-07-12] MEDS: CEFEPIME 2 GM in SODIUM CHL 0.9% 50ML MIN-BAG+ 50 ML IVPB SCH ×2 (05:50→17:43)
[2020-07-12] MEDS: PANTOPRAZOLE SODIUM TAB 40 MG PO SCH (05:50)
[2020-07-12] MEDS: IPRATROPIUM/ALBUTEROL 3 ML VIAL INH SCH ×4 (07:09→19:58)
[2020-07-12] MEDS: INSULIN LISPRO 100 UNITS/ML PEN SUBCU SCH ×4 (07:27→21:12)
--- NOTE | 2020-07-12 08:16 | PN ---
SUPERVISING PHYSICIAN: Jun Malik M.D. DATE: 07/11/20 SUBJECTIVE: The patient seems to be okay. She continues to get her antibiotics. She has been afebrile. She has had no complaints of worsening shortness of breath or chest pain. She has had little rounds of tachycardia, some PVCs, but she has been started back on her medications today which is being observed. She denied any chest pains. OBJECTIVE: VITAL SIGNS: T max was 97.9, pulse 97, blood pressure 119/81, respirations 20, satting 92 to 96% on room air. GENERAL: The patient is resting comfortably. Does not appear to be in any distress. HEART: Regular rate and rhythm. ABDOMEN: Soft, non-tender. Positive bowel sounds. EXTREMITIES: Continues to have a clean bandage in place to the right foot. Pulses are unchanged at 1+. NEUROLOGIC: She is alert and oriented times three. SKIN: Warm, pink and dry. LABORATORY: Labs have been stable. We plan to repeat a BMP in the morning to follow her creatinine based on the antibiotic regimen she is on. Her blood sugars are showing to be better controlled, ranging between 139 and 247. RADIOLOGY: Repeat chest x-ray this morning per radiology interpretation showed moderate perihilar vascular congestion, stable. ASSESSMENT: 1. Left lower lobe pneumonia, community acquired. 2. Sepsis secondary to #1. 3. Chronic obstructive pulmonary disease with exacerbation secondary to #1. 4. Osteomyelitis of the right foot with a chronic diabetic ulcer as noted findings on MRI. 5. Diabetes mellitus, type 2, on insulin therapy. 6. Hypertension. 7. Congestive heart failure with a systolic dysfunction with an ejection fraction of 30% with an elevated BNP on admission associated with #1. PLAN: I did talk with Dr. Livingston regarding care and future plan of care. She is in agreement with current dosing of cefepime, azithromycin and Vancomycin. She will finish the azithromycin on day 5 but continue with vancomycin and cefepime. We will continue to dose as appropriate. After the assessment with Dr. Livingston, she will need to be at least 3 to 6 weeks of antibiotic therapy but agreed the patient could be treated unit Monday, discharge after she finishes her antibiotics on Monday if she is stable clinically to be followed up with Dr. Joel at which time making further assessment for need for possible surgical intervention on the foot. She continues to be encouraged to be non- weightbearing as much as possible on that foot and keep it elevated. dressing changes are ordered. Cultures are still pending. We will continue to monitor and treat until patient can be transitioned to outpatient management. [facility][id number] [facility]
[2020-07-12] MEDS: PREGABALIN 75 MG CAP PO SCH (08:30)
[2020-07-12] MEDS: metFORMIN HCL 500 MG TAB PO SCH ×2 (08:30→16:38)
[2020-07-12] MEDS: BIFIDOBACTERIUM INFANTIS 4 MG CAP PO SCH ×2 (08:30→20:12)
[2020-07-12] MEDS: CLOPIDOGREL 75 MG TAB PO SCH (08:30)
[2020-07-12] MEDS: Wellbutrin XL 150 MG TAB PO SCH (08:30)
[2020-07-12] MEDS: ASPIRIN (CHEWABLE) 81 MG TAB PO SCH (08:31)
[2020-07-12] MEDS: DOCUSATE SODIUM 100 MG CAP PO SCH (08:31)
[2020-07-12] MEDS: ESCITALOPRAM 10 MG TAB PO SCH (08:31)
[2020-07-12] MEDS: FUROSEMIDE 40 MG TAB PO SCH (08:31)
[2020-07-12] MEDS: CARVEDILOL 12.5 MG TAB PO SCH ×2 (08:32→20:12)
[2020-07-12] MEDS: SPIRONOLACTONE 25 MG TAB PO SCH (08:32)
[2020-07-12] MEDS: SODIUM CHLORIDE 0.9% (FLUSH) 10 ML SYG IV SCH ×2 (08:32→20:12)
[2020-07-12] MEDS: SACUBITRIL VALSARTAN PO SCH ×2 (08:35→20:13)
[2020-07-12] MEDS: LEVALBUTEROL NEBS 1.25 MG/3 ML VIAL NEB SCH ×2 (08:50→16:40)
[2020-07-12] MEDS: VANCOMYCIN HCL INJ 1,000 MG, VANCOMYCIN HCL INJ 500 MG in SODIUM CHLORIDE 0.9% 250ML 25... IVPB SCH (09:37)
[2020-07-12] MEDS: AZITHROMYCIN IV 500 MG in SODIUM CHLORIDE 0.9% 250ML 250 ML IVPB SCH (12:24)
--- NOTE | 2020-07-12 16:27 | PN ---
SUPERVISING PHYSICIAN: Jun Malik M.D. DATE: 07/12/20 SUBJECTIVE: The patient is doing well. She has not had any complaints as far as shortness of breath or chest pain. She says her foot is not bothering her too much. Still a little drainage but showing improvement. Discussed plan of care that she will discharge tomorrow once she has her antibiotics on Monday and further arrangement to be made as an outpatient, and she will followup with Dr. Proctor on Monday. OBJECTIVE: VITAL SIGNS: T max temperature 97.8, pulse 79, blood pressure 120/64, respirations 18, satting 99% on room air. GENERAL: The patient is resting comfortably. Does not appear to be in any distress. HEART: Regular rate and rhythm. ABDOMEN: Soft, non-tender. Positive bowel sounds. EXTREMITIES: Continues to have a clean bandage in place to the right foot. Pulses are unchanged at 1+. NEUROLOGIC: She is alert and oriented times three. SKIN: Warm, pink and dry. LABORATORY: BMP this morning shows normal electrolytes, creatinine 0.75, blood sugars are better controlled between 140 and 143. ASSESSMENT: 1. Left lower lobe pneumonia, community acquired. 2. Sepsis secondary to #1. 3. Chronic obstructive pulmonary disease with exacerbation secondary to #1. 4. Osteomyelitis of the right foot with a chronic diabetic ulcer as noted findings on MRI. 5. Diabetes mellitus, type 2, on insulin therapy. 6. Hypertension. 7. Congestive heart failure with a systolic dysfunction with an ejection fraction of 30% with an elevated BNP on admission associated with #1. PLAN: Will continue for an additional 24 hours of antibiotics. Once she gets her antibiotics tomorrow, certainly I think she could discharge home. She is set up to see Dr. Proctor on Monday. I believe that appointment is already in the computer. Her son has already talked to Dr. Proctor and is aware of the appointment. I have also updated Dr. Carrizales on the plan of care. She had the PICC line placed and there has been no complications with that. Again, she will need to go home on Vancomycin and Cefepime for anywhere from 3 to 12 weeks, but again she is seeing Dr. Proctor on Monday and may need to have some debridement done, so we need to coordinate through Dr. Proctor's office as far as the antibiotic regimen as well as with Dr. Carrizales. Until we can transition to outpatient management will continue to monitor and treat as needed. #[id number] [facility]
[2020-07-12] MEDS: INSULIN DETEMIR 100 UNITS/ML PEN SUBCU SCH (20:11)
[2020-07-12] MEDS: PRAMIPEXOLE 0.25 MG TAB PO SCH (20:12)
[2020-07-12] MEDS: ATORVASTATIN 20 MG TAB PO SCH (20:12)
[2020-07-12] MEDS: ENOXAPARIN SODIUM 40 MG/0.4 ML SYG SUBCU SCH (20:12)
[2020-07-13] MEDS: LEVALBUTEROL NEBS 1.25 MG/3 ML VIAL NEB SCH ×2 (02:40→08:30)
[2020-07-13] MEDS: VANCOMYCIN HCL INJ 1,000 MG, VANCOMYCIN HCL INJ 500 MG in SODIUM CHLORIDE 0.9% 250ML 25... IVPB SCH (04:07)
[2020-07-13] MEDS: HYDROcodone 5MG/APAP 325MG 1 EA TAB PO PRN (04:12)
[2020-07-13] MEDS: PANTOPRAZOLE SODIUM TAB 40 MG PO SCH (06:15)
[2020-07-13] MEDS: LEVOTHYROXINE SODIUM 0.025 MG TAB PO SCH (06:15)
[2020-07-13] MEDS: CEFEPIME 2 GM in SODIUM CHL 0.9% 50ML MIN-BAG+ 50 ML IVPB SCH ×2 (06:21→14:52)
[2020-07-13] MEDS: IPRATROPIUM/ALBUTEROL 3 ML VIAL INH SCH (07:11)
[2020-07-13] MEDS ORDERED: LEVALBUTEROL NEBS 1.25 MG/3 ML VIAL NEB ONE (07:45)
[2020-07-13] MEDS: INSULIN LISPRO 100 UNITS/ML PEN SUBCU SCH ×2 (08:45→11:27)
[2020-07-13] MEDS: CARVEDILOL 12.5 MG TAB PO SCH (08:46)
[2020-07-13] MEDS: BIFIDOBACTERIUM INFANTIS 4 MG CAP PO SCH (08:46)
[2020-07-13] MEDS: Wellbutrin XL 150 MG TAB PO SCH (08:46)
[2020-07-13] MEDS: ASPIRIN (CHEWABLE) 81 MG TAB PO SCH (08:46)
[2020-07-13] MEDS: DOCUSATE SODIUM 100 MG CAP PO SCH (08:46)
[2020-07-13] MEDS: PREGABALIN 75 MG CAP PO SCH (08:46)
[2020-07-13] MEDS: SPIRONOLACTONE 25 MG TAB PO SCH (08:46)
[2020-07-13] MEDS: metFORMIN HCL 500 MG TAB PO SCH (08:46)
[2020-07-13] MEDS: SACUBITRIL VALSARTAN PO SCH (08:47)
[2020-07-13] MEDS: FUROSEMIDE 40 MG TAB PO SCH (08:47)
[2020-07-13] MEDS: CLOPIDOGREL 75 MG TAB PO SCH (08:47)
[2020-07-13] MEDS: SODIUM CHLORIDE 0.9% (FLUSH) 10 ML SYG IV SCH (08:48)
[2020-07-13] MEDS: ESCITALOPRAM 10 MG TAB PO SCH (08:49)
[2020-07-13] MEDS: AZITHROMYCIN IV 500 MG in SODIUM CHLORIDE 0.9% 250ML 250 ML IVPB SCH (11:12)
[2020-07-13 12:28] VITALS: BP 97/66; TEMP 97.1; O2SAT 98
--- NOTE | 2020-07-13 13:23 | DS ---
SUPERVISING PHYSICIAN: Deyvi Browne MD ADMISSION DIAGNOSIS: 1. Sepsis secondary to left lower lobe pneumonia and right foot cellulitis. 2. Left lower lobe pneumonia. 3. Right foot cellulitis worrisome for osteomyelitis. 4. Diabetes mellitus, type 2. 5. Chronic obstructive pulmonary disease with exacerbation. 6. Hypertension. 7. Systolic congestive heart failure. DISCHARGE DIAGNOSIS: 1. Sepsis. 2. Left lower lobe pneumonia. 3. Right foot osteomyelitis. 4. Chronic obstructive pulmonary disease with exacerbation. 5. Diabetes mellitus, type 2. 6. Hypertension. 7. Systolic heart failure. HOSPITAL COURSE: This 70-year-old female who was admitted on 07/08/20 due to fever, shortness of breath and confusion. She went to the Emergency Room for those reasons and was found to have a fever, leukocytosis, and hypoxemia as well. Lactate was elevated at 3. She was admitted to the hospital for sepsis and placed on empiric antibiotics. She had CT angiogram of the chest which did not show any pulmonary embolism, but potentially a left lower lobe pneumonia versus scarring. Also, CT scan of the right foot showed fifth metatarsal osteomyelitis. She was admitted and placed on empiric antibiotics and also treated with steroids for COPD exacerbation. Over the course of her admission, her leukocytosis normalized and her fever resolved. Consultation with Dr. Livingston, Infectious Disease, was done and she recommended 6 weeks of outpatient cefepime and vancomycin. She is going to have a PICC line for that reason and will be discharged today in stable condition for outpatient antibiotics. She has a followup appointment with Dr. Proctor who will address the diabetic foot ulcer which is basically the cause of osteomyelitis as well. She can followup with Dr. Carrizales in one to two weeks as well. [facility][id number] [facility]
== END 2020-07-13 15:35 | disposition home health service (06) | DRG 871 ==
LOC: ER 13:43 → MS 20:18 → UNDOADMIN 20:18 → MS 07-09 20:31
PROVIDERS: ADMIT Nurse Practitioner Acute Care; ATTEND Nurse Practitioner
PROC: B32T1ZZ Computerized Tomography (CT Scan) of Left Pulmonary Artery using Low Osmolar Contrast (ICD-10-PCS; 2020-07-08)
PROC: B32S1ZZ Computerized Tomography (CT Scan) of Right Pulmonary Artery using Low Osmolar Contrast (ICD-10-PCS; 2020-07-08)
PROC: 02HV33Z Insertion of Infusion Device into Superior Vena Cava, Percutaneous Approach (ICD-10-PCS; principal; 2020-07-10)
DX: A41.9 Sepsis, unspecified organism (principal); J18.9 Pneumonia, unspecified organism; L03.115 Cellulitis of right lower limb; M86.8X7 Other osteomyelitis, ankle and foot; J44.1 Chronic obstructive pulmonary disease with (acute) exacerbation; I50.22 Chronic systolic (congestive) heart failure; F05 Delirium due to known physiological condition; G93.41 Metabolic encephalopathy; E11.69 Type 2 diabetes mellitus with other specified complication; I11.0 Hypertensive heart disease with heart failure; R09.02 Hypoxemia; E11.621 Type 2 diabetes mellitus with foot ulcer; L97.519 Non-pressure chronic ulcer of other part of right foot with unspecified severity; E11.51 Type 2 diabetes mellitus with diabetic peripheral angiopathy without gangrene; E66.9 Obesity, unspecified; Z79.4 Long term (current) use of insulin; Z95.1 Presence of aortocoronary bypass graft; Z89.411 Acquired absence of right great toe; Z89.421 Acquired absence of other right toe(s); Z88.1 Allergy status to other antibiotic agents; Z88.8 Allergy status to other drugs, medicaments and biological substances; Z91.040 Latex allergy status; Z79.899 Other long term (current) drug therapy

== ENCOUNTER 2020-07-15 10:37 | Emergency (ER) | payer OTHER ==
--- NOTE | 2020-07-15 10:51 | ED.PDOC ---
History of Present Illness - General Chief Complaint: Respiratory Problem Stated Complaint: shortness of breath Time Seen by Provider: 07/15/20 10:38 - History of Present Illness Initial Comments: 70 yo F was discharged 2 days ago after she was diagnosed with pneumonia with hpoxia and wound infection. She was discharged with PICC line on cefepime and vancomycin. Discussed with her doctor who told her to stop IV antibiotics and treated the pneumonia with azithromycin. Patient has been on oral azithromycin but does not feel better so was sent here for a repeat cxr. Patient does note she didn't take her lasix yesterday because she was on the road. Denies chest pain, n/v/d. +cough and shortness of breath. Patient is an insulin dependent diabetic, states she does not eat what she is suppose to, so her glucose has bee n elevated. Allergies/Adverse Reactions: Allergies CI Pigment Blue 63 [From Cymbalta] Allergy (Mild, Verified 07/31/16 09:17) Rash Ciprofloxacin [From Cipro] Allergy (Mild, Verified 07/31/16 09:17) Rash Duloxetine [From Cymbalta] Allergy (Mild, Verified 07/31/16 09:18) Rash Latex Allergy (Mild, Verified 07/31/16 09:19) Rash states does not know if it is the powder or gloves itself that causes the rash Venlafaxine [From Effexor] Allergy (Mild, Verified 07/31/16 09:20) Rash Home Medications: Ambulatory Orders Clopidogrel Bisulfate [Plavix] 75 mg PO DAILY #0 03/29/13 Furosemide 40 mg PO DAILY #0 03/29/13 Metformin HCl 1,000 mg PO BID #0 03/29/13 Spironolactone 25 mg PO DAILY #0 03/29/13 Carvedilol [Coreg] 12.5 mg PO BID 07/28/16 Insulin Glargine [Lantus Solostar] 26 unit SC BEDTIME 07/28/16 Insulin Lispro [Humalog] 0 unit SC .SLIDING SCALE PRN 07/28/16 Bifidobacterium Infantis [Align] 4 mg PO BID #30 cap 08/02/16 Acetaminophen W/ Codeine [Tylenol/Codeine #4 300-60 mg] 1 ea PO TID PRN 08/27/19 Acetaminophen [Mapap] 500 mg PO TID PRN 08/27/19 Bupropion HCl [Wellbutrin Sr] 150 mg PO QAM 08/27/19 Cyanocobalamin Inj [Vitamin B-12 Inj] 1,000 mcg IM MONTHLY 08/27/19 Docusate Sodium [Stool Softener] 100 mg PO DAILY PRN 08/27/19 Escitalopram Oxalate [Lexapro] 5 mg PO DAILY 08/27/19 Pramipexole Dihydrochloride [Mirapex] 0.25 mg PO BEDTIME 08/27/19 Pregabalin [Lyrica] 150 mg PO DAILY 08/27/19 Semaglutide [Ozempic] 0.25 - 0.5 mg SC MO 08/27/19 diphenhydrAMINE HCL [Benadryl] 25 mg PO DAILY PRN 08/27/19 Levothyroxine Sodium 50 mcg PO 0630 07/08/20 Rosuvastatin Calcium 20 mg PO BEDTIME 07/08/20 Sacubitril-Valsartan [Entresto 24-26 mg] 24 - 26 mg PO BID 07/08/20 Cefepime [Maxipime] 2 gm IVPB Q12H vial 07/13/20 Vancomycin Per Pharmacy 1 ea IVPB ONCE each 07/13/20 Cefpodoxime Proxetil 200 mg PO BID #10 tab 07/15/20 Furosemide [Lasix] 20 mg PO DAILY 5 Days #5 tab 07/15/20 Review of Systems - Review of Systems Constitutional: States: malaise. Denies: chills, fever EENTM: Denies: blurred vision, ear pain, ear discharge, throat pain, mouth pain Respiratory: States: short of breath. Denies: cough Cardiology: Denies: chest pain, palpitations, syncope Gastrointestinal/Abdominal: Denies: abdominal pain, diarrhea, nausea, vomiting Genitourinary: Denies: dysuria, frequency, hematuria Musculoskeletal: Denies: back pain, joint pain, muscle pain Skin: Denies: rash Neurological: Denies: headache, numbness, paresthesia, tingling, tremors, weakness Endocrine: Denies: increased hunger, increased thirst, increased urine, unexplained weight gain, unexplained weight loss Hematologic/Lymphatic: Denies: blood clots, easy bleeding, easy bruising Past Medical History (General) - Patient Medical History Hx Seizures: No Hx Stroke: No Hx Dementia: No Hx Asthma: No Hx of COPD: No Hx Cardiac Disorders: Yes Hx Congestive Heart Failure: Yes Hx Pacemaker: No Hx Hypertension: No Hx Thyroid Disease: Yes Hx Diabetes: Yes Hx Gastroesophageal Reflux: No Hx Renal Disease: No Hx Cancer: No Hx Hepatitis C: No Hx MRSA: Yes MRSA Source:: Wound - Vaccination History Hx Tetanus, Diphtheria Vaccination: Yes Hx Influenza Vaccination: Yes Hx Pneumococcal Vaccination: Yes - Social History Hx Tobacco Use: No Hx Chewing Tobacco Use: No Hx Alcohol Use: No Hx Substance Use: No Hx Substance Use Treatment: No Hx Depression: Yes Hx Physical Abuse: No Hx Emotional Abuse: No Hx Suspected Abuse: No Family Medical History - Family History Father Living Status: Hx Family Congestive Heart Failure: Yes - from heart problems Mother Family History: No Known Living Status: Hx Family;Other: cerosis of liver Physical Exam - Physical Exam General Appearance: Alert, Comfortable, No apparent distress Eyes, Ears, Nose, Throat Exam: PERRL/EOMI, normal ENT inspection Neck: non-tender, full range of motion, supple, normal inspection Respiratory: chest non-tender, lungs clear, no respiratory distress, no accessory muscle use, rales Cardiovascular/Chest: normal peripheral pulses, regular rate, rhythm, no gallop, no JVD, other - 3+ pitting edema bilaterally Peripheral Pulses: radial,right: 2+, radial,left: 2+ Gastrointestinal/Abdominal: normal bowel sounds, non tender, soft, no organomegaly, no pulsatile mass Rectal Exam: deferred Extremity: non-tender, swelling Neurologic: no motor/sensory deficits, alert, normal mood/affect, oriented x 3 Skin Exam: warm/dry Progress - Progress Progress: 07/15/20 10:51 Partial ddx: DKA, penumonia, CHF, COPD exacerbation, PE. Initial EKG showed QRS inversion in lead I-II, AVl, and a positive qrs in lead avr. This maybe due to lead placement. We will repeat ekg now. Repeat EKG shows HR 82, NSR, with LAD, LBBB, QRS now negative in avr, and positive in lead I. Prior new abnormalities in ekg was due to limb placement. when compared to ekg on 07/08/20 no longer in a-fib. q waves in inferior leads, not new, no evidence of acute ischemia. patient had CTA 4 days prior which was negative for PE. 07/15/20 11:23 CXR shows kerey B lines, pleural effusion slightly improved from previous. Will give 40 mg lasix. Will not give nitro due to borderline bp 115. Patient stable on RA, saturating 94-95%. Will discharge home on cepodoxime in addition to her azithromycin. Will also increase lasix to 60 mg a day for 5 days. She is to follow up with her pcp tomorrow. we will not dc on K due to being on spironolactone. The data reviewed when caring for this patient included: nurse notes, prior records, etc. The history and assessments from nurses notes were reviewed and considered, and the patient's home medication list was also reviewed and considered. My assessment and the results of testing completed here in the ED were discussed with the patient/family. All questions were answered, and they express understanding of my assessment and the plan. They have been instructed to return if their symptoms worsen, and have been asked to follow up with their primary care physician to recheck today's presenting complaint. Strict return precautions given. I have reviewed medication, benefits, alternatives and side effects. Patient decided to proceed with medication. VSS, patient was discharged home with son in stable condition. Honey Moore DO #[id number] Departure - Departure Clinical Impression: Hypokalemia Heart failure Qualifiers: Heart failure type: unspecified Heart failure chronicity: acute on chronic Qualified Code(s): I50.9 - Heart failure, unspecified Time of Disposition: 12:01 Disposition: Discharge to Home or Self Care Departure Forms: ED Discharge - Pt. Copy, Patient Portal Self Enrollment Instructions: Heart Failure, Adult, Shortness of Breath (Dyspnea), Breathing Exercises Diet: low salt diet Activity: walking as tolerated Referrals: Solitario Carrizales MD [Primary Care Provider] - 1-2 Days Prescriptions: Cefpodoxime Proxetil 200 mg PO BID #10 tab Furosemide [Lasix] 20 mg PO DAILY 5 Days #5 tab Home Medications: Ambulatory Orders Clopidogrel Bisulfate [Plavix] 75 mg PO DAILY #0 03/29/13 Furosemide 40 mg PO DAILY #0 03/29/13 Metformin HCl 1,000 mg PO BID #0 03/29/13 Spironolactone 25 mg PO DAILY #0 03/29/13 Carvedilol [Coreg] 12.5 mg PO BID 07/28/16 Insulin Glargine [Lantus Solostar] 26 unit SC BEDTIME 07/28/16 Insulin Lispro [Humalog] 0 unit SC .SLIDING SCALE PRN 07/28/16 Bifidobacterium Infantis [Align] 4 mg PO BID #30 cap 08/02/16 Acetaminophen W/ Codeine [Tylenol/Codeine #4 300-60 mg] 1 ea PO TID PRN 08/27/19 Acetaminophen [Mapap] 500 mg PO TID PRN 08/27/19 Bupropion HCl [Wellbutrin Sr] 150 mg PO QAM 08/27/19 Cyanocobalamin Inj [Vitamin B-12 Inj] 1,000 mcg IM MONTHLY 08/27/19 Docusate Sodium [Stool Softener] 100 mg PO DAILY PRN 08/27/19 Escitalopram Oxalate [Lexapro] 5 mg PO DAILY 08/27/19 Pramipexole Dihydrochloride [Mirapex] 0.25 mg PO BEDTIME 08/27/19 Pregabalin [Lyrica] 150 mg PO DAILY 08/27/19 Semaglutide [Ozempic] 0.25 - 0.5 mg SC MO 08/27/19 diphenhydrAMINE HCL [Benadryl] 25 mg PO DAILY PRN 08/27/19 Levothyroxine Sodium 50 mcg PO 0630 07/08/20 Rosuvastatin Calcium 20 mg PO BEDTIME 07/08/20 Sacubitril-Valsartan [Entresto 24-26 mg] 24 - 26 mg PO BID 07/08/20 Cefepime [Maxipime] 2 gm IVPB Q12H vial 07/13/20 Vancomycin Per Pharmacy 1 ea IVPB ONCE each 07/13/20 Cefpodoxime Proxetil 200 mg PO BID #10 tab 07/15/20 Furosemide [Lasix] 20 mg PO DAILY 5 Days #5 tab 07/15/20
[2020-07-15 10:52] VITALS: TEMP 97.5
[2020-07-15] MEDS ORDERED: FUROSEMIDE INJ 40 MG/4 ML VIAL IV ONE (11:10)
--- NOTE | 2020-07-15 11:25 | RAD ---
Study: Frontal and Lateral Radiographs of the Chest. Indication: short of breath Comparison: July 11, 2020 Impression: Median sternotomy wires. Right PICC line tip terminates in the right [facility]. Cardiomegaly. Mild to moderate pulmonary edema noted and slightly improved compared to the prior. Mild elevation left hemidiaphragm. Tiny pleural effusions suspected. No pneumothorax. Degenerative changes of the spine noted. Electronically signed by: Anthony Mauricio MD 07/15/2020 11:23 AM CDT [facility]
[2020-07-15] MEDS ORDERED: POTASSIUM CHLORIDE ELIXIR 20 MEQ/15 ML UD PO ONE (11:28)
[2020-07-15 12:01] VITALS: O2SAT 94
[2020-07-15 12:18] VITALS: BP 110/89
== END 2020-07-15 12:17 | disposition home or self-care (01) ==
LOC: ER 10:37
DX: I50.9 Heart failure, unspecified (principal); E87.6 Hypokalemia; R06.02 Shortness of breath; I44.7 Left bundle-branch block, unspecified; F32.9 Major depressive disorder, single episode, unspecified; E11.9 Type 2 diabetes mellitus without complications; E07.9 Disorder of thyroid, unspecified; Z79.4 Long term (current) use of insulin; Z79.02 Long term (current) use of antithrombotics/antiplatelets; Z79.899 Other long term (current) drug therapy; Z88.1 Allergy status to other antibiotic agents; Z88.8 Allergy status to other drugs, medicaments and biological substances; Z91.040 Latex allergy status; Z87.01 Personal history of pneumonia (recurrent)
CPT/HCPCS: 36415; 71046; 80053; 81001; 82009; 83880; 84484; 85025; J1940

== ENCOUNTER → 2020-08-06 | Outpatient (CLI) | payer MEDICARE ==
[~2020-08-06] MED LIST: NON-FORMULARY MEDICATION 1 EA MIS INJ ONE
[2020-08-06 14:45] VITALS: BP 103/65; TEMP 99.1; O2SAT 96
== END ==
LOC: EDSTATUS 07-23 11:39 → INFRM 11:37
PROVIDERS: ATTEND Internal Medicine Infectious Disease
DX: M86.171 Other acute osteomyelitis, right ankle and foot (principal)

== ENCOUNTER → 2020-08-12 | Outpatient (CLI) | payer MEDICARE, OTHER | LOC: YCHH 11:20 | PROVIDERS: ATTEND Family Medicine | DX: M86.171 Other acute osteomyelitis, right ankle and foot (principal); N18.9 Chronic kidney disease, unspecified; D64.9 Anemia, unspecified ==

== ENCOUNTER → 2020-08-17 | Outpatient (CLI) | payer MEDICARE, OTHER | LOC: YCHH 13:01 | PROVIDERS: ATTEND Family Medicine | DX: L08.9 Local infection of the skin and subcutaneous tissue, unspecified (principal); M86.171 Other acute osteomyelitis, right ankle and foot ==

== ENCOUNTER → 2020-08-19 | Outpatient (CLI) | payer MEDICARE, OTHER | LOC: YCHH 12:00 | PROVIDERS: ATTEND Family Medicine | DX: E11.621 Type 2 diabetes mellitus with foot ulcer (principal); M86.68 Other chronic osteomyelitis, other site; D64.9 Anemia, unspecified; I50.9 Heart failure, unspecified; N18.9 Chronic kidney disease, unspecified ==

== ENCOUNTER → 2020-08-26 | Outpatient (CLI) | payer MEDICARE, OTHER | LOC: YCFC.O 11:34 | PROVIDERS: ATTEND Family Medicine | DX: M86.171 Other acute osteomyelitis, right ankle and foot (principal); E11.628 Type 2 diabetes mellitus with other skin complications; N18.9 Chronic kidney disease, unspecified; D64.9 Anemia, unspecified ==

== ENCOUNTER → 2020-08-31 | Outpatient (CLI) | payer MEDICARE, OTHER | LOC: YCHH 09:31 | PROVIDERS: ATTEND Family Medicine | DX: M86.171 Other acute osteomyelitis, right ankle and foot (principal) ==

== ENCOUNTER → 2020-09-02 | Outpatient (CLI) | payer MEDICARE, OTHER | LOC: YCHH 11:52 | PROVIDERS: ATTEND Family Medicine | DX: M86.171 Other acute osteomyelitis, right ankle and foot (principal); E11.628 Type 2 diabetes mellitus with other skin complications; N18.9 Chronic kidney disease, unspecified; D64.9 Anemia, unspecified ==

== ENCOUNTER → 2020-09-09 | Outpatient (CLI) | payer MEDICARE, OTHER | LOC: YCHH 10:06 | PROVIDERS: ATTEND Family Medicine | DX: D64.9 Anemia, unspecified (principal); E78.5 Hyperlipidemia, unspecified; E03.9 Hypothyroidism, unspecified; E53.8 Deficiency of other specified B group vitamins; E11.9 Type 2 diabetes mellitus without complications; I50.9 Heart failure, unspecified; N18.9 Chronic kidney disease, unspecified; M86.171 Other acute osteomyelitis, right ankle and foot ==

== ENCOUNTER → 2020-09-16 | Outpatient (CLI) | payer OTHER, MEDICARE | LOC: YCHH 10:41 | PROVIDERS: ATTEND Family Medicine | DX: M86.171 Other acute osteomyelitis, right ankle and foot (principal); E11.628 Type 2 diabetes mellitus with other skin complications; D64.9 Anemia, unspecified; N18.9 Chronic kidney disease, unspecified ==

== ENCOUNTER → 2020-09-23 | Outpatient (CLI) | payer OTHER | LOC: YCHH 12:19 | PROVIDERS: ATTEND Family Medicine | DX: M86.171 Other acute osteomyelitis, right ankle and foot (principal); E11.628 Type 2 diabetes mellitus with other skin complications; N18.9 Chronic kidney disease, unspecified; E11.9 Type 2 diabetes mellitus without complications; D64.9 Anemia, unspecified ==

== ENCOUNTER → 2020-09-30 | Outpatient (CLI) | payer MEDICARE, OTHER | LOC: YCHH 10:21 | PROVIDERS: ATTEND Family Medicine | DX: M86.171 Other acute osteomyelitis, right ankle and foot (principal); E11.628 Type 2 diabetes mellitus with other skin complications; N18.9 Chronic kidney disease, unspecified; D64.9 Anemia, unspecified ==

== ENCOUNTER → 2020-10-07 | Outpatient (CLI) | payer OTHER | LOC: YCHH 11:37 | PROVIDERS: ATTEND Family Medicine | DX: D64.9 Anemia, unspecified (principal); N18.9 Chronic kidney disease, unspecified; M86.171 Other acute osteomyelitis, right ankle and foot ==

== ENCOUNTER → 2020-10-15 | Outpatient (CLI) | payer OTHER | LOC: YCHH 10:59 | PROVIDERS: ATTEND Family Medicine | DX: M86.171 Other acute osteomyelitis, right ankle and foot (principal); E11.628 Type 2 diabetes mellitus with other skin complications; N18.9 Chronic kidney disease, unspecified; E11.9 Type 2 diabetes mellitus without complications; D64.9 Anemia, unspecified ==

== ENCOUNTER → 2020-10-22 | Outpatient (CLI) | payer OTHER | LOC: YCHH 11:56 | PROVIDERS: ATTEND Family Medicine | DX: D64.9 Anemia, unspecified (principal); M86.171 Other acute osteomyelitis, right ankle and foot; E11.628 Type 2 diabetes mellitus with other skin complications; N18.9 Chronic kidney disease, unspecified; E11.9 Type 2 diabetes mellitus without complications ==

== ENCOUNTER → 2020-10-28 | Outpatient (CLI) | payer MEDICARE, OTHER | LOC: YCHH 11:08 | PROVIDERS: ATTEND Family Medicine | DX: M86.171 Other acute osteomyelitis, right ankle and foot (principal); E11.628 Type 2 diabetes mellitus with other skin complications; N18.9 Chronic kidney disease, unspecified; E11.9 Type 2 diabetes mellitus without complications; D64.9 Anemia, unspecified ==

== ENCOUNTER → 2020-11-04 | Outpatient (CLI) | payer OTHER | LOC: YCHH 12:41 | PROVIDERS: ATTEND Family Medicine | DX: M86.171 Other acute osteomyelitis, right ankle and foot (principal); E11.628 Type 2 diabetes mellitus with other skin complications; N18.9 Chronic kidney disease, unspecified; E11.9 Type 2 diabetes mellitus without complications; D64.9 Anemia, unspecified ==

== ENCOUNTER → 2020-11-11 | Outpatient (CLI) | payer MEDICARE, OTHER | LOC: YCHH 11:09 | PROVIDERS: ATTEND Family Medicine | DX: M86.171 Other acute osteomyelitis, right ankle and foot (principal); E11.628 Type 2 diabetes mellitus with other skin complications; N18.9 Chronic kidney disease, unspecified; D64.9 Anemia, unspecified ==

== ENCOUNTER → 2020-11-18 | Outpatient (CLI) | payer OTHER | LOC: YCHH 10:28 | PROVIDERS: ATTEND Family Medicine | DX: M86.171 Other acute osteomyelitis, right ankle and foot (principal); E11.628 Type 2 diabetes mellitus with other skin complications; N18.9 Chronic kidney disease, unspecified; E11.9 Type 2 diabetes mellitus without complications; D64.9 Anemia, unspecified ==

== ENCOUNTER → 2020-11-25 | Outpatient (CLI) | payer MEDICARE, OTHER | LOC: YCHH 11:31 | PROVIDERS: ATTEND Family Medicine | DX: M86.171 Other acute osteomyelitis, right ankle and foot (principal); E11.628 Type 2 diabetes mellitus with other skin complications; N18.9 Chronic kidney disease, unspecified; E11.9 Type 2 diabetes mellitus without complications; D64.9 Anemia, unspecified ==

== ENCOUNTER → 2020-12-02 | Outpatient (CLI) | payer MEDICARE, OTHER | LOC: YCHH 10:30 | PROVIDERS: ATTEND Family Medicine | DX: M86.171 Other acute osteomyelitis, right ankle and foot (principal); E11.628 Type 2 diabetes mellitus with other skin complications; N18.9 Chronic kidney disease, unspecified; E11.9 Type 2 diabetes mellitus without complications; D64.9 Anemia, unspecified ==

== ENCOUNTER → 2020-12-16 | Outpatient (CLI) | payer OTHER | LOC: YCHH 10:12 | PROVIDERS: ATTEND Family Medicine | DX: M86.171 Other acute osteomyelitis, right ankle and foot (principal); E11.628 Type 2 diabetes mellitus with other skin complications; N18.9 Chronic kidney disease, unspecified; E11.9 Type 2 diabetes mellitus without complications; D64.9 Anemia, unspecified ==